=== PATIENT | female | born 1950 | race Caucasian/White ===

== ENCOUNTER → 2016-04-17 | Outpatient (CLI) | payer MEDICARE | END | disposition home or self-care (01) | LOC: LABWHC1 09:43 | PROVIDERS: ATTEND Internal Medicine Endocrinology, Diabetes & Metabolism | DX: E03.8 Other specified hypothyroidism (principal) | CPT/HCPCS: 36415; 84443 ==

== ENCOUNTER → 2016-06-06 | Outpatient (CLI) | payer MEDICARE | END | disposition home or self-care (01) | LOC: LABWHC1 10:37 | PROVIDERS: ATTEND Internal Medicine Endocrinology, Diabetes & Metabolism | DX: E03.8 Other specified hypothyroidism (principal) | CPT/HCPCS: 36415; 84443 ==

== ENCOUNTER 2016-10-03 10:01 | Observation (INO) | payer MEDICARE ==
--- NOTE | 2016-10-03 10:39 | ED ---
General Adult HPI - General Chief complaint: Arrhythmia/Palpitations Stated complaint: Chest Pains Time Seen by Provider: 10/03/16 10:17 Source: patient, family, RN notes reviewed Mode of arrival: wheelchair Limitations: no limitations - History of Present Illness Initial comments: 66-year-old female with history of GERD, and hypothyroidism presents with palpitations. Patient states that throughout the night she had palpitations, she was able to check her pulse on a home pulse oximeter and had a heart rate ranging from 1:30 to 160. She had an episode similar to this approximately one year ago. She did wear a three-day monitor at that time. She has been seen by cardiology, but is not currently on any treatment. No known history of atrial fibrillation. Patient states that tonight she did have some chest heaviness, denies any significant chest pain. She also has been experiencing some exertional dyspnea over the past several weeks. She states she had a stress test within the past year which according to her was normal, she's never had a heart catheterization. She has no history of fever or chills. No history of cough. She does have a family history of atrial fibrillation and congestive heart failure. No history of diabetes or hypertension. Patient is currently asymptomatic. No palpitations. No chest pain. No shortness of breath. Denies lower extremity swelling or pain. - Related Data Allergies Allergy/AdvReac Type Severity Reaction Status Date / Time ibuprofen Allergy Unknown Verified 10/03/16 10:03 Review of Systems ROS Statement: Those systems with pertinent positive or pertinent negative responses have been documented in the HPI. ROS Other: All systems not noted in ROS Statement are negative. Past Medical History Past Medical History: Thyroid Disorder Additional Past Medical History / Comment(s): lupus, neuropathy, ulcer History of Any Multi-Drug Resistant Organisms: None Reported Past Surgical History: Tonsillectomy Additional Past Surgical History / Comment(s): breast reduction Past Psychological History: No Psychological Hx Reported Smoking Status: Never smoker Past Alcohol Use History: Rare Past Drug Use History: None Reported General Exam Limitations: no limitations General appearance: alert, in no apparent distress Head exam: Present: atraumatic, normocephalic Eye exam: Present: normal appearance, PERRL ENT exam: Present: normal exam, mucous membranes moist Neck exam: Present: normal inspection. Absent: tenderness, meningismus Respiratory exam: Present: normal lung sounds bilaterally. Absent: respiratory distress, wheezes, rales Cardiovascular Exam: Present: regular rate, normal rhythm, normal heart sounds GI/Abdominal exam: Present: soft. Absent: distended, tenderness, guarding Extremities exam: Present: normal inspection, normal capillary refill. Absent: pedal edema, calf tenderness Back exam: Present: normal inspection, full ROM Neurological exam: Present: alert, oriented X3, CN II-XII intact. Absent: motor sensory deficit Psychiatric exam: Present: normal affect, normal mood Skin exam: Present: warm, dry, intact. Absent: cyanosis, diaphoretic Course Vital Signs 10/03/16 10/03/16 10/03/16 10:03 10:28 11:54 Temperature 96.7 F L Pulse Rate 75 73 78 Respiratory 18 20 16 Rate Blood Pressure 110/66 109/75 134/72 O2 Sat by Pulse 97 96 100 Oximetry EKG Findings - EKG Comments: EKG Findings:: EKG shows normal sinus rhythm, ventricular 74, [place] interval 138, QRS duration 88, QTC is 428, there is no ST segment elevation or depression, no T-wave abnormality. Medical Decision Making - Medical Decision Making 66-year-old female presents with palpitations. Patient did check her heart rate at home and had a rate of 1:30 to 160 at home. She experienced some chest tightness and heaviness with this. This was nonradiating. No nausea or diaphoresis associated with the chest pain. Patient has had a stress test and according to her this was negative. She is currently asymptomatic in the emergency department. EKG is nonischemic. Chest x-ray shows no acute process. Patient's laboratory studies including CBC, CMP, and cardiac enzymes are unremarkable. Patient did take an aspirin at home prior to arrival. Patient was placed in observation for serial cardiac enzymes and cardiology evaluation. She'll be placed on telemetry. Diagnosis: Palpitations, chest pain. - Lab Data Result diagrams: 10/03/16 10:20 10/03/16 10:20 Lab Results 10/03/16 10/03/16 10/03/16 Range/Units 10:20 10:20 10:20 WBC 7.1 (3.8-10.6) k/uL RBC 4.24 (3.80-5.40) m/uL Hgb 13.8 (11.4-16.0) gm/dL Hct 38.7 (34.0-46.0) % MCV 91.1 (80.0-100.0) fL MCH 32.6 (25.0-35.0) pg MCHC 35.8 (31.0-37.0) g/dL RDW 12.8 (11.5-15.5) % Plt Count 247 (150-450) k/uL Neutrophils % 62 % Lymphocytes % 27 % Monocytes % 6 % Eosinophils % 3 % Basophils % 1 % Neutrophils # 4.4 (1.3-7.7) k/uL Lymphocytes # 1.9 (1.0-4.8) k/uL Monocytes # 0.4 (0-1.0) k/uL Eosinophils # 0.2 (0-0.7) k/uL Basophils # 0.0 (0-0.2) k/uL PT (9.0-12.0) sec INR (<1.2) APTT (22.0-30.0) sec D-Dimer (<0.60) mg/L FEU Sodium 141 (137-145) mmol/L Potassium 4.2 (3.5-5.1) mmol/L Chloride 107 (98-107) mmol/L Carbon Dioxide 24 (22-30) mmol/L Anion Gap 10 mmol/L BUN 15 (7-17) mg/dL Creatinine 0.95 (0.52-1.04) mg/dL Est GFR (MDRD) Af Amer >60 (>60 ml/min/1.73 sqM) Est GFR (MDRD) Non-Af 59 (>60 ml/min/1.73 sqM) Glucose 117 H (74-99) mg/dL Calcium 9.3 (8.4-10.2) mg/dL Magnesium 1.7 (1.6-2.3) mg/dL Total Bilirubin 0.4 (0.2-1.3) mg/dL AST 34 (14-36) U/L ALT 43 (9-52) U/L Alkaline Phosphatase 89 (38-126) U/L Total Creatine Kinase 90 (30-135) U/L CK-MB (CK-2) 1.0 (0.0-2.4) ng/mL CK-MB (CK-2) Rel Index 1.1 Troponin I <0.012 (0.000-0.034) ng/mL NT-Pro-B Natriuret Pep pg/mL Total Protein 7.6 (6.3-8.2) g/dL Albumin 4.0 (3.5-5.0) g/dL TSH 1.590 (0.465-4.680) mIU/L 10/03/16 10/03/16 Range/Units 10:20 10:20 WBC (3.8-10.6) k/uL RBC (3.80-5.40) m/uL Hgb (11.4-16.0) gm/dL Hct (34.0-46.0) % MCV (80.0-100.0) fL MCH (25.0-35.0) pg MCHC (31.0-37.0) g/dL RDW (11.5-15.5) % Plt Count (150-450) k/uL Neutrophils % % Lymphocytes % % Monocytes % % Eosinophils % % Basophils % % Neutrophils # (1.3-7.7) k/uL Lymphocytes # (1.0-4.8) k/uL Monocytes # (0-1.0) k/uL Eosinophils # (0-0.7) k/uL Basophils # (0-0.2) k/uL PT 9.8 (9.0-12.0) sec INR 1.0 (<1.2) APTT 21.7 L (22.0-30.0) sec D-Dimer 0.36 (<0.60) mg/L FEU Sodium (137-145) mmol/L Potassium (3.5-5.1) mmol/L Chloride (98-107) mmol/L Carbon Dioxide (22-30) mmol/L Anion Gap mmol/L BUN (7-17) mg/dL Creatinine (0.52-1.04) mg/dL Est GFR (MDRD) Af Amer (>60 ml/min/1.73 sqM) Est GFR (MDRD) Non-Af (>60 ml/min/1.73 sqM) Glucose (74-99) mg/dL Calcium (8.4-10.2) mg/dL Magnesium (1.6-2.3) mg/dL Total Bilirubin (0.2-1.3) mg/dL AST (14-36) U/L ALT (9-52) U/L Alkaline Phosphatase (38-126) U/L Total Creatine Kinase (30-135) U/L CK-MB (CK-2) (0.0-2.4) ng/mL CK-MB (CK-2) Rel Index Troponin I (0.000-0.034) ng/mL NT-Pro-B Natriuret Pep 298 pg/mL Total Protein (6.3-8.2) g/dL Albumin (3.5-5.0) g/dL TSH (0.465-4.680) mIU/L Disposition Clinical Impression: Palpitations, Chest pain Disposition: ADMITTED IP TO THIS [facility] Condition: Stable Referrals: Willem Piper MD [Primary Care Provider] - 1-2 days Decision to Admit Reason: Admit from EC Decision Date: 10/03/16 Decision Time: 12:05
[2016-10-03 10:47] LABS: Basophils % (A) 1 %; CH 31.5; CHCM 34.7; Eosinophils # (A) 0.2 k/uL (0-0.7); Eosinophils % (A) 3 %; HCT 38.7 % (34.0-46.0); HDW 2.46; HGB 13.8 gm/dL (11.4-16.0); Luc % (Auto) 3; Lymphocytes # (A) 1.9 k/uL (1.0-4.8); Lymphocytes % (A) 27 %; MCH 32.6 pg (25.0-35.0); MCHC 35.8 g/dL (31.0-37.0); MCV 91.1 fL (80.0-100.0); Mean Platelet Volume 7.2; Monocytes # (A) 0.4 k/uL (0-1.0); Monocytes % (A) 6 %; Neutrophils # (A) 4.4 k/uL (1.3-7.7); Neutrophils % (A) 62 %; RBC 4.24 m/uL (3.80-5.40); RDW 12.8 % (11.5-15.5); WBC 7.1 k/uL (3.8-10.6); WBC (Perox) 7.56
[2016-10-03 11:00] LABS: Prothrombin Time 9.8 sec (9.0-12.0)
[2016-10-03 11:01] LABS: ALT 43 U/L (9-52); AST 34 U/L (14-36); Alkaline Phosphatase 89 U/L (38-126); Anion Gap 10 mmol/L; Blood Urea Nitrogen 15 mg/dL (7-17); Calcium 9.3 mg/dL (8.4-10.2); Carbon Dioxide 24 mmol/L (22-30); Chloride 107 mmol/L (98-107); Glucose 117 mg/dL (74-99); Magnesium 1.7 mg/dL (1.6-2.3); Non-African American GFR(MDRD) 59 (>60 ml/min/1.73 sqM); Potassium 4.2 mmol/L (3.5-5.1); Sodium 141 mmol/L (137-145); Total Bilirubin 0.4 mg/dL (0.2-1.3); Total Protein 7.6 g/dL (6.3-8.2)
--- NOTE | 2016-10-03 11:02 | XR ---
EXAMINATION TYPE: XR chest 2V DATE OF EXAM: 10/03/2016 COMPARISON: NONE TECHNIQUE: PA and lateral views submitted. HISTORY: Irregular heart rate FINDINGS: The lungs are clear and there is no pneumothorax, pleural effusion, or focal pneumonia. Nodular den sity along the right upper lobe. This may be related to anterior margin first rib. Recommend apical l ordotic view. Changes of COPD noted. Hypertrophic and degenerative change of the spine. IMPRESSION: 1. No acute process. Recommend apical lordotic view to exclude nodule right upper lobe. 2. COPD.
[2016-10-03 11:07] LABS: Partial Thromboplastin Time 21.7 sec (22.0-30.0)
[2016-10-03 11:08] LABS: Creatine Kinase 90 U/L (30-135)
[2016-10-03 11:20] LABS: Troponin I <0.012 ng/mL (0.000-0.034)
[2016-10-03] MEDS ORDERED: NALOXONE 0.4 MG/ML 1 ML VIAL IV PRN (12:07)
[2016-10-03] MEDS ORDERED: ACETAMINOPHEN TAB 325 MG TAB PO PRN (12:07)
[2016-10-03] MEDS ORDERED: ONDANSETRON 4 MG/2 ML VIAL IVP PRN (12:07)
[2016-10-03] MEDS: SODIUM CHLORIDE 0.9% 1,000 ML IV SCH (12:30)
[2016-10-03] MEDS: THYROID, PORK 30 MG TAB PO SCH ×2 (20:51)
[2016-10-03 23:18] LABS: Creatine Kinase 72 U/L (30-135)
[2016-10-03 23:33] LABS: Creatine Kinase MB 0.7 ng/mL (0.0-2.4); Troponin I <0.012 ng/mL (0.000-0.034)
[2016-10-04] MEDS ORDERED: THYROID, PORK 30 MG TAB PO SCH (06:30)
[2016-10-04] MEDS: SODIUM CHLORIDE 0.9% 1,000 ML IV SCH (06:50)
[2016-10-04] MEDS: THYROID, PORK 30 MG TAB PO SCH ×2 (06:51→06:52)
[2016-10-04] MEDS ORDERED: PANTOPRAZOLE 40 MG TABLET PO SCH (07:30)
[2016-10-04 07:41] LABS: Basophils % (A) 0 %; CH 32.2; CHCM 34.2; Eosinophils # (A) 0.2 k/uL (0-0.7); Eosinophils % (A) 2 %; HCT 39.9 % (34.0-46.0); HGB 13.2 gm/dL (11.4-16.0); Luc # (Auto) 0.21; Luc % (Auto) 3; Lymphocytes # (A) 2.1 k/uL (1.0-4.8); Lymphocytes % (A) 30 %; MCH 31.2 pg (25.0-35.0); MCV 94.7 fL (80.0-100.0); Mean Platelet Volume 7.7; Monocytes # (A) 0.4 k/uL (0-1.0); Monocytes % (A) 6 %; Neutrophils # (A) 4.1 k/uL (1.3-7.7); Neutrophils % (A) 59 %; RBC 4.21 m/uL (3.80-5.40); RDW 13.2 % (11.5-15.5); WBC (Perox) 7.29
[2016-10-04 07:57] LABS: ALT 42 U/L (9-52); AST 33 U/L (14-36); Alkaline Phosphatase 79 U/L (38-126); Anion Gap 11 mmol/L; Blood Urea Nitrogen 15 mg/dL (7-17); Calcium 9.1 mg/dL (8.4-10.2); Carbon Dioxide 23 mmol/L (22-30); Chloride 107 mmol/L (98-107); Glucose 88 mg/dL (74-99); Non-African American GFR(MDRD) >60 (>60 ml/min/1.73 sqM); Potassium 4.5 mmol/L (3.5-5.1); Sodium 141 mmol/L (137-145); Total Bilirubin 0.4 mg/dL (0.2-1.3); Total Protein 7.1 g/dL (6.3-8.2)
[2016-10-04 08:25] LABS: Creatine Kinase MB 0.6 ng/mL (0.0-2.4)
[2016-10-04] MEDS ORDERED: CHOLECALCIFEROL 1,000 UNIT TAB PO SCH (09:00)
[2016-10-04] MEDS ORDERED: NON-FORMULARY DRUG (Omega-3 Fatty Acids [Omega-3] 1,000 MG) PO SCH (09:00)
[2016-10-04] MEDS ORDERED: ASPIRIN 325 MG TAB PO SCH (09:00)
[2016-10-04] MEDS ORDERED: FOLIC ACID 1 MG TAB PO SCH (09:00)
--- NOTE | 2016-10-04 10:20 | CONS ---
Mrs. Yip is a 66-year-old female who came in complaining of palpitations and a rapid heartbeat of sudden onset. She was not really doing anything but she was standing when it happened. Her heart suddenly started to race very rapidly. She describes irregular rapid arrhythmia, not an irregular, irregular one. She feels it in her neck. She was short of breath. She was feeling the racing heart. She really did not have any chest discomfort but she did feel the need to sit down. This episode lasted for 2-3 hours. She has had numerous episodes over the last six months or so and has seen Dr. Mahan and has had an event monitor which did not document any clear cut arrhythmias and she was on observation management only. However, according to her she has had at least two episodes when she was shopping (standing) where she had a sudden onset of the arrhythmia and had to sit down because she did not feel right. She did bear down on those occasions and apparently this resulted in termination of the arrhythmia. However, the episodes in the past have been very short and this is the first time she has had such a long episode. PAST HISTORY: Hypothyroidism and GERD. She denies hypertension or diabetes. states she does get short of breath with exertion upon climbing the stairs. MEDICATIONS: 1. [place] thyroid. 2. Prilosec. 3. Folic acid. 4. Vitamin D3. REVIEW OF SYSTEMS: No fever, chills or rigors. No cough or expectoration. No nausea, vomiting, diarrhea, hematuria or dysuria. No stroke or seizure. No skin lesion. No musculoskeletal complaints. On examination, her blood pressure is 137/84 mmHg, pulse rate is in the 60's. She is afebrile, having some ( ). HEAD AND NECK: Normal. HEART: Heart sounds are normal. LUNGS: Clear to auscultation. EXTREMITIES: Warm. No edema. ECG shows sinus rhythm with normal NM interval, narrow QRS, no delta waves. ST segments are normal. Her labs are reviewed. Troponins are normal. TSH is normal at 1.6. Electrolytes are normal. Hemoglobin is normal at 13.8 and 13.2. IMPRESSION: 1. Recurrent palpitations, initially brief and short lived but still associated with dizziness and possibly Valsalva since terminated with bearing down. 2. Rapid palpitations of prolonged duration for 2-3 hours before abrupt termination. 3. Normal echocardiogram. 4. Normal cardiac enzymes. 5. Hypothyroidism, on replacement therapy and euthyroid at this time. SUGGEST: I had a detailed discussion with the patient and her . She has already had an event monitor in the past which did not capture any arrhythmias. She did not have any episodes at that time. I would not perform any further monitoring at this point. Her best option would be to perform a diagnostic EP study to see if she has any inducible arrhythmias such as an SVT or perhaps atrial fibrillation. At this point we do not have a diagnosis. 1. If she has an SVT, radiofrequency will be performed at the same setting. I described the entire procedure to her in detail, risks and benefits, success rates and complications in detail. 2. Other option is observation and attempting the Valsalva maneuver, however, on this occasion she was not able to stop it. 3. Medical treatment, however, she understands that we do not have a diagnosis of her condition and she will have to take the medications for life. In view of the fact that even shorter episodes have on at least two occasions caused dizziness to the point where she is being forced to sit down, I would suggest a diagnostic EP study to make a diagnosis of her arrhythmia followed by appropriate treatment. The patient is agreeable to this and I will schedule her for the procedure and have my office give her a call. MANNY
--- NOTE | 2016-10-04 11:02 | HP ---
DATE OF ADMISSION: 10/03/16 I am covering for Dr. Piper. CHIEF COMPLAINT: Chest pain and palpitations. HISTORY OF PRESENT ILLNESS: This 66-year-old woman with past medical history of multiple medical problems including GI bleed, hypertension, hypothyroidism, lupus, being followed by Dr. Piper in the outpatient setting, previously had palpitations which was evaluated by Cardiology in the outpatient setting. Last night, the patient woke up apparently from a dream which was not scary and heart rate was found to be 150. The heart rate came abruptly to normal rate according to her and the patient came to [facility] and was admitted to the hospital for further evaluation and treatment. The patient also had some feeling of anxiety and shortness of breath at the time. The patient also complaining of vague chest discomfort also. There is no history of fever, rigors or chills. No history of headache, loss of consciousness or seizures. Past medical history of hypertension, hypothyroidism, lupus, nephropathy, GERD. Mediations prior to admission include: 1. [place] thyroid 60 mg po daily and 50 mg po daily . 2. Prilosec 20 mg a.c. breakfast. 3. [place] 3 daily. 4. Multivitamins one po daily. 5. Folic acid 0.4 daily. 6. Vitamin D3 1000 daily. ALLERGIES: IBUPROFEN. FAMILY HISTORY: History of CHF and colon cancer. SOCIAL HISTORY: No history of smoking. No history of alcohol intake. REVIEW OF SYSTEMS: HEENT: No diminished vision. No diminished hearing. Cardiovascular system: As mentioned earlier. Respiratory: No cough, hemoptysis. GI: No nausea or vomiting. : No dysuria. Nervous system: No numbness, weakness. Allergy/Immunology: No asthma or hayfever. Musculoskeletal: As mentioned earlier. Hematology/oncology: No history of anemia. Endocrine: As mentioned earlier. Constitutional: As mentioned earlier. Dermatology: Negative. Rheumatology: Negative. Psychiatry: As mentioned earlier. PHYSICAL EXAMINATION: The patient is alert, oriented times three. Pulse 63. Blood pressure 103/64. Respiratory rate 16, temperature 98.2. Pulse ox 97% on room air. HEENT: Conjunctivae normal. NECK: No JVD. Cardiovascular: S1, S2 muffled. No S3, no S4. No murmur. No thrills Respiratory: Breath sounds diminished at the bases. No rhonchi and no crackles. Abdomen is soft , nontender. No mass palpable. Legs: No edema. No swelling. Nervous system: Higher functions as mentioned earlier. Moves all four limbs. No focal deficits. Lymphatics: No lymph nodes palpable in the neck, axilla or groin. Skin: No ulcer, rash or bleeding. LABS: CBC within normal limits. Glucose 170. TSH is normal. FINAL DIAGNOSES: 1. Chest pain and palpation for evaluation, rule out supraventricular tachycardia. 2. Hypertension. 3. Hypothyroidism. 4. Lupus. 5. History of peripheral neuropathy. RECOMMENDATIONS AND DISCUSSION: In this 66 -year-old woman who presented with multiple complex medical issues, we will monitor the patient closely. Continue the current medications. Continue symptomatic treatment. We will resume the home medications. I would also recommend cardiology consultation. Continue with telemetry. The patient also had 30 day telemetry according to her. I would recommend continued follow-up in the outpatient setting with possible event monitor. Otherwise, prognosis guarded. Further recommendations to follow. See orders for details. MTDD
[2016-10-04] MEDS ORDERED: MULTIVITAMINS, THERA 1 EACH TAB PO SCH (12:00)
[2016-10-04 12:25] VITALS: BP 104/60; PULSE 67; RESP 16; TEMP 98.1
--- NOTE | 2016-10-04 18:38 | P.DS ---
Providers Date of admission: 10/03/16 12:10 Attending physician: Willem Piper Consults: 10/03/16 12:08 Consult Physician Urgent Consulting Provider: Dangelo Leigh Consult Reason/Comments: Palpitations and chest pain Do you want consulting provider notified?: Yes Primary care physician: Willem Piper [facility] Course: This 66-year-old woman was admitted to the hospital with complaints or chest pain and palpitations. Patient was evaluated by cardiology. Patient also had a past medical history of similar symptoms. Patient is being followed by Dr. Piper in the outpatient setting. Dr. Clemente saw the patient during the hospitalization. Recommended outpatient follow-up including EP studies. I also recommended the patient to follow up closely with Dr. Piper and cardiology in the outpatient setting. On exam vitals stable S1 and S2 normal. Respirator system breath sounds equal. Abdomen soft nontender. Final diagnosis 1. Chest pain palpitation possibly supraventricular tachycardia. 2. Hypertension 3. Hypothyroidism 4. Lupus 5. History of peripheral neuropathy Patient Condition at Discharge: Stable Plan - Discharge Summary New Discharge Prescriptions: Continue Folic Acid 0.4 mg PO DAILY Cholecalciferol [Vitamin D3] 1,000 unit PO DAILY Thyroid,Pork [[place] Thyroid] 15 mg PO DAILY Thyroid,Pork [[place] Thyroid] 60 mg PO DAILY Omeprazole [PriLOSEC] 20 mg PO AC-BRKFST [place]-3 Fatty Acids [Theresa-3] 1,000 mg PO DAILY Multivitamins, Thera [Multivitamin (formulary)] 1 tab PO DAILY Discharge Medication List Cholecalciferol [Vitamin D3] 1,000 unit PO DAILY 10/03/16 [History] Folic Acid 0.4 mg PO DAILY 10/03/16 [History] Multivitamins, Thera [Multivitamin (formulary)] 1 tab PO DAILY 10/03/16 [History ] [place]-3 Fatty Acids [Theresa-3] 1,000 mg PO DAILY 10/03/16 [History] Omeprazole [PriLOSEC] 20 mg PO AC-BRKFST 10/03/16 [History] Thyroid,Pork [[place] Thyroid] 15 mg PO DAILY 10/03/16 [History] Thyroid,Pork [[place] Thyroid] 60 mg PO DAILY 10/03/16 [History] Follow up Appointment(s)/Referral(s): Dangelo Leigh MD [STAFF PHYSICIAN] - 1 Week (Dr. Leigh's office will call the patient to set up an appointment.) Willem Piper MD [Primary Care Provider] - 3 Days Ambulatory/Diagnostic Orders: Complete Blood Count w/diff [LAB.AMB] Time Frame: 3 Days, Location: Determined By Patient Patient Instructions/Handouts: Palpitations (GEN) Activity/Diet/Wound Care/Special Instructions: Diet: Cardiac Activity: Limited until follow up Discharge Disposition: HOME SELF-CARE
== END 2016-10-04 13:03 | disposition home or self-care (01) ==
LOC: EC 10:01 → 3OBS 12:10
PROVIDERS: ADMIT Family Medicine; ATTEND Family Medicine
DX: R07.89 Other chest pain (principal); R00.2 Palpitations; R06.00 Dyspnea, unspecified; R00.0 Tachycardia, unspecified; R06.02 Shortness of breath; R42 Dizziness and giddiness; I10 Essential (primary) hypertension; E03.9 Hypothyroidism, unspecified; M32.9 Systemic lupus erythematosus, unspecified; G62.9 Polyneuropathy, unspecified; K21.9 Gastro-esophageal reflux disease without esophagitis; Z82.49 Family history of ischemic heart disease and other diseases of the circulatory system; Z88.6 Allergy status to analgesic agent; Z79.899 Other long term (current) drug therapy
CPT/HCPCS: 99285; 96360; 96361; 36415; 93005; 85379; 83880; 80053 ×2; 84443; 82550 ×2; 82553 ×2; 83735; 84484; 85025 ×2; 85610; 85730; 71020; G0378 ×2

== ENCOUNTER 2016-10-06 12:45 | Day surgery (SDC) | payer MEDICARE ==
[2016-10-06] MEDS ORDERED: LIDOCAINE 2% INJ 20 MG/ML SQ ONE (13:15)
[2016-10-06] MEDS ORDERED: fentaNYL (PF) 50 MCG/ML 2 ML AMP ONE (14:35)
[2016-10-06] MEDS ORDERED: MIDAZOLAM 2 MG/2 ML VIAL ONE (14:35)
[2016-10-06] MEDS ORDERED: ISOPROTERENOL 250 MCG/1.25 ML SYR IV ONE (14:35)
[2016-10-06] MEDS ORDERED: IV FLUID CONTINUATION 1,000 ML IV ONE (14:35)
[2016-10-06] MEDS ORDERED: PROPOFOL 10 MG/ML 20 ML VIAL IV ONE (14:35)
[2016-10-06] MEDS ORDERED: HYDROcodone/APAP 5-325MG 1 EACH TAB PO PRN (17:15)
[2016-10-06] MEDS ORDERED: ACETAMINOPHEN TAB 325 MG TAB PO PRN (17:15)
--- NOTE | 2016-10-06 18:05 | CE ---
Earlene Yip is a 66-year-old female who has had recurrent episodes of palpitations, recent prolonged episode and she was quite symptomatic. She was brought in for diagnostic EP study and possibly radiofrequency ablation. The patient was brought to the EP lab in a fasting state. Written informed consent was obtained prior to the procedure. The right and left groins were prepped and draped as per protocol. 1% Lidocaine was used for local anesthesia. Four venous sheaths were placed in the right and left femoral veins and via these, four diagnostic catheters were positioned in the right heart ( high right atrial catheter, His bundle catheter, RV catheter and coronary sinus catheter). Sinus cycle length 818 ms, ND interval 135 ms, QRS 112 ms, QT interval 382 ms, AH interval 51 ms, HV interval 41 ms. Sinus node recovery times at 600, 500 and 400 ms were 1168, 1046 and 995 ms, corresponding corrected sinus node recovery times within normal limits. AV node Wenckebach block 340 ms, no delta waves. Initially there was no evidence of slow pathway conduction during straight pacing but later through the procedure, during Isuprel recovery, there was evidence of slow pathway conduction antegrade with straight pacing. VA Wenckebach of less than 240 ms. External extrastimulation was performed from the high right atrium and from the coronary sinus with predominant extra stimuli and there was evidence for jump in the AH interval with an echo beat as well as short, nonsustained runs of SVT. With catheter manipulation, sustained SVT was induced but it terminated before pacing ( ) could be performed. On Isuprel, SVT was more difficult to induce. ( ) pacing was performed and shahid response was noted. Ventricular extrastimulation showed that the retrograde conduction ( ). 3D mapping of the slow pathway was performed. The His cloud was mapped and tagged. Coronary sinus os was tagged. Tricuspid valve was identified and RF ablation, anterior inferior to the coronary sinus was performed. Junction rhythm was obtained with almost virtually all RF lesions especially at a temperature reached above 53 degrees. At the end of the procedure, after RF ablation, a full EP study was once again performed with extra stimulation of triple extra stimuli and there was no evidence for even an echo beat. No SVT was induced. No non-sustained ST was induced. The patients ND interval was 141 ms at the end of the procedure. She tolerated the procedure well without any acute complications. RESULT: Diagnostic EP study revealing AV shahid reentry ( ) tachycardia. Successful slow pathway mapping ablation was performed and the tachycardia was rendered non-reducible. PLAN: Overnight observation and discharge home tomorrow. Follow with Dr. Mahan and Dr. Piper. MANNY
--- NOTE | 2016-10-06 18:10 | MISC ---
Dear Willem: I had the pleasure of seeing Earlene Yip in electrophysiology follow-up. I saw Earlene when she was admitted to the hospital with recurrent palpitations. She has had palpitations in the past but they have been shorter episodes often associated with some dizziness. She was brought in for an EP study and AV shahid reentry was induced quite easily. Successful mapping and ablation of AV shahid reentry was performed and the tachycardia was rendered noninducible. She will continue [place] thyroid and ( ) other medications. She was not given any other cardiac medications at this point. She will follow-up with you and Dr. Mahan as before. Thank you for entrusting me in the care of your patient. Warm regards, Sincerely, MANNY
[2016-10-06 18:56] VITALS: BMI 29.6
[2016-10-07] MEDS ORDERED: THYROID, PORK 30 MG TAB PO SCH ×2 (06:30)
[2016-10-07] MEDS: SODIUM CHLORIDE 0.9% 1,000 ML IV SCH ×2 (07:08→10:39)
[2016-10-07] MEDS: LACTATED RINGERS 1,000 ML IV SCH ×2 (07:08→10:38)
[2016-10-07] MEDS ORDERED: PANTOPRAZOLE 40 MG TABLET PO SCH (07:30)
[2016-10-07 08:10] VITALS: BP 120/70; PULSE 68; RESP 17; TEMP 97.7
--- NOTE | 2016-10-07 09:56 | P.DS ---
Providers Attending physician: Dangelo Leigh Primary care physician: Willem Piper [facility] Course: Patient was admitted for evaluation and management of recurrent palpitations associated with lightheadedness. Increasing in frequency. Increasing in duration. She underwent a diagnostic EP study which revealed AV shahid reentry and she underwent successful SVT ablation/slow pathway ablation. At the end of the procedure the tachycardia was rendered noninducible. We could not even induce single echo beats at the end of the procedure. MT interval was 140 ms. She is doing well this morning. No chest discomfort no shortness of breath. Minimal groin pain. No swelling no hematoma. Heart sounds are normal normal S1 normal S2 no murmurs no gallops. Breath sounds are normal no rhonchi no crackles. Abdomen is soft nontender. Extremities are warm and pulses are normal Impression AV shahid reentrant tachycardia, recurrent status post successful ablation yesterday Plan Discharge home later today after ambulation in the hallways for a few hours and follow-up of Dr. Mahan in about 2 weeks Plan - Discharge Summary New Discharge Prescriptions: No Action Cholecalciferol [Vitamin D3] 5,000 unit PO DAILY Omeprazole [PriLOSEC] 20 mg PO AC-BRKFST [place]-3 Fatty Acids [[place]-3] 1,000 mg PO DAILY Multivitamins, Thera [Multivitamin (formulary)] 1 tab PO DAILY Thyroid,Pork [[place] Thyroid] 60 mg PO DAILY Folic Acid 0.8 mg PO DAILY Thyroid,Pork [[place] Thyroid] 15 mg PO DAILY Discharge Medication List Cholecalciferol [Vitamin D3] 5,000 unit PO DAILY 10/03/16 [History] Multivitamins, Thera [Multivitamin (formulary)] 1 tab PO DAILY 10/03/16 [History ] [place]-3 Fatty Acids [[place]-3] 1,000 mg PO DAILY 10/03/16 [History] Omeprazole [PriLOSEC] 20 mg PO AC-BRKFST 10/03/16 [History] Folic Acid 0.8 mg PO DAILY 10/05/16 [History] Thyroid,Pork [[place] Thyroid] 15 mg PO DAILY 10/05/16 [History] Thyroid,Pork [[place] Thyroid] 60 mg PO DAILY 10/05/16 [History]
== END 2016-10-07 11:00 | disposition home or self-care (01) ==
LOC: CATHEP 12:45 → 3OBS 17:06 → CATHEP 10-07 11:00
PROVIDERS: ATTEND Internal Medicine Clinical Cardiac Electrophysiology
DX: I47.1 Supraventricular tachycardia (principal); E03.9 Hypothyroidism, unspecified; K21.9 Gastro-esophageal reflux disease without esophagitis; Z79.899 Other long term (current) drug therapy; Z88.6 Allergy status to analgesic agent; Z88.8 Allergy status to other drugs, medicaments and biological substances
CPT/HCPCS: 93623; 93613; 93653; C1894; C1769; C1730 ×3; C1732 ×2; C1893; J2001; J2250; J3010; J2704; 93609

== ENCOUNTER → 2016-10-19 | Outpatient (CLI) | payer MEDICARE | END | disposition home or self-care (01) | LOC: LABWHC1 09:12 | PROVIDERS: ATTEND Internal Medicine Endocrinology, Diabetes & Metabolism | DX: E03.8 Other specified hypothyroidism (principal) | CPT/HCPCS: 36415; 84443 ==

== ENCOUNTER → 2016-12-15 | Outpatient (CLI) | payer MEDICARE | END | disposition home or self-care (01) | LOC: LABWHC1 14:52 | PROVIDERS: ATTEND Internal Medicine Endocrinology, Diabetes & Metabolism | DX: E03.8 Other specified hypothyroidism (principal) | CPT/HCPCS: 36415; 84443 ==

== ENCOUNTER → 2017-03-17 | Outpatient (CLI) | payer MEDICARE ==
--- NOTE | 2017-03-18 09:23 | BD ---
EXAMINATION TYPE: MG DEXA axial skeleton. DATE OF EXAM: 03/17/2017 COMPARISON: NONE CLINICAL HISTORY: post menopausal Height: 5'5 Weight: 187 FRAX RISK QUESTIONS: Alcohol (3 or more units per day): no Family History (Parent hip fracture): no Glucocorticoids (More than 3mos): no (Ex: prednisone, prednisolone, methylprednisolone, dexamethasone, and hydrocortisone). History of Fracture in Adulthood: no Secondary Osteoporosis: 1. Type 1 Diabetes: no 2. Hyperthyroidism: no 3. Menopause before 45: no 4. Malnutrition: no 5. Chronic liver disease: no Rheumatoid Arthritis: no Current Tobacco Use: no RISK FACTORS HISTORY OF: Postmenopausal woman: Lost more than 2 inches in height since high school: Frequent falls: MEDICATIONS: Thyroid Medications: Which medication: armarthyroid How Lon years Additional Medications: Additional History: EXAM MEASUREMENTS: Bone mineral densitometry was performed using the [employer]. Bone mineral density as measured about the Lumbar spine is: ----- L1-L4(G/cm2): 1.170 T Score Values are as follows: ----- L2: 0.0 ----- L3: 0.5 ----- L4: -0.2 ----- L1-L4: -0.1 Bone mineral density about the R hip (g/cm2): 0.867 Bone mineral density about the L hip (g/cm2): 0.865 T Score values are as follows: -----R Neck: -1.2 -----L Neck: -1.2 -----R Total: -0.5 -----L Total: -0.5 IMPRESSION: Osteopenia (T Score between -2.5 and -1 as noted by T score values at femoral neck level in both hips . There is slightly increased risk of fracture and the patient may be considered for treatment. Re-Screen 2-5 years. NOTE: T-SCORE=SD OF THE YOUNG ADULT MEAN.
--- NOTE | 2017-03-19 07:19 | MM ---
Reason for exam: screening (asymptomatic). Last mammogram was performed 1 year and 6 months ago. History: Patient is postmenopausal. Reductions of both breasts, 1999. Taking estrogen for 6 months beginning at age 55. Physical Findings: A clinical breast exam by your physician is recommended on an annual basis and results should be correlated with mammographic findings. MG Screening Mammo w CAD Bilateral CC and MLO view(s) were taken. Prior study comparison: September 10, 2015, bilateral MG 3d screening mammo w/cad. May 24, 2006, CAD bilateral diagnostic mammogram. There are scattered fibroglandular densities. No significant changes when compared with prior studies. ASSESSMENT: Benign, BI-RAD 2 RECOMMENDATION: Routine screening mammogram of both breasts in 1 year.
== END | disposition home or self-care (01) ==
LOC: RADMAMWWP 15:13
PROVIDERS: ATTEND Family Medicine
DX: Z12.31 Encounter for screening mammogram for malignant neoplasm of breast (principal); M85.851 Other specified disorders of bone density and structure, right thigh; M85.852 Other specified disorders of bone density and structure, left thigh; Z78.0 Asymptomatic menopausal state
CPT/HCPCS: 77067; 77080

== ENCOUNTER → 2017-05-10 | Outpatient (CLI) | payer MEDICARE | END | disposition home or self-care (01) | LOC: LABWHC1 10:16 | PROVIDERS: ATTEND Internal Medicine Endocrinology, Diabetes & Metabolism | DX: E03.8 Other specified hypothyroidism (principal) | CPT/HCPCS: 36415; 84443 ==

== ENCOUNTER → 2017-12-13 | Outpatient (CLI) | payer MEDICARE ==
--- NOTE | 2017-12-13 11:06 | US ---
EXAMINATION TYPE: US thyroid st tissue head/neck DATE OF EXAM: 12/13/2017 COMPARISON: NONE CLINICAL HISTORY: Hypothyroidism E03.9. GLAND SIZE: Right Lobe: 3.4 x 1.2 x 1.2 cm Overall Parenchyma: heterogenous Left Lobe: 3.3 x 1.0 x 1.1 cm Overall Parenchyma: heterogeneous Isthmus Thickness: 0.4 cm NODULES RIGHT: # of nodules measured on right: 0 LEFT: # of nodules measured on left: 0 Posterior lateral to left thyroid is a cystic structure measuring 0.5 x 0.4 x 0.4cm, this cyst is wid er than tall and has no vascularity. ISTHMUS: # of nodules measured in the isthmus: 0 Bilateral neck scanned, no evidence of lymphadenopathy. IMPRESSION: 1. Nonspecific thyroid glandular heterogeneity. 2. Extrathyroid cystic structure as noted.
--- NOTE | 2017-12-13 11:15 | FL ---
ESOPHOGRAM. HISTORY: Dysphagia Esophagram was performed per the air contrast technique. The patient swallowed barium and effervesce nt crystals without difficulty or delay. Esophageal peristalsis and motility appear to be within normal limits. There is no evidence for filling defect, mass or diverticulum. Small reducible sliding type hiatal hernia. Subsequently single contrast cervical esophagram was performed which fails demonstrate evidence for a spiration penetration or mass. There is mild hypertrophy of the cricopharyngeus musculature. IMPRESSION: 1.Small reducible sliding type hiatal hernia. 2.There is mild hypertrophy of the cricopharyngeus musculature.
== END | disposition home or self-care (01) ==
LOC: RADUSWWP 10:02
PROVIDERS: ATTEND Otolaryngology
DX: K44.9 Diaphragmatic hernia without obstruction or gangrene (principal); J39.2 Other diseases of pharynx; E03.9 Hypothyroidism, unspecified
CPT/HCPCS: 74220; 76536

== ENCOUNTER → 2017-12-16 | Outpatient (CLI) | payer MEDICARE ==
[2017-12-16 17:43] LABS: Thyroid Peroxidase Antibodies 52.9 U/mL (0.0-60.0)
== END | disposition home or self-care (01) ==
LOC: LABWHC1 08:57
PROVIDERS: ATTEND Otolaryngology
DX: E03.9 Hypothyroidism, unspecified (principal)
CPT/HCPCS: 36415; 86376; 86800

== ENCOUNTER → 2018-01-14 | Outpatient (CLI) | payer MEDICARE | LOC: LABWHC1 11:11 | PROVIDERS: ATTEND Internal Medicine Endocrinology, Diabetes & Metabolism | DX: E03.8 Other specified hypothyroidism (principal) | CPT/HCPCS: 36415; 84443 ==

== ENCOUNTER 2018-02-02 07:24 | Day surgery (SDC) | payer MEDICARE ==
[2018-01-27 09:27] VITALS: BMI 29.8
[~2018-02-02 07:24] MED LIST: LACTATED RINGERS 1,000 ML IV SCH
[2018-02-02 07:40] VITALS: RESP 17; TEMP 97.5
[2018-02-02] MEDS ORDERED: fentaNYL (PF) 50 MCG/ML 2 ML AMP ONE (08:01)
[2018-02-02] MEDS ORDERED: MIDAZOLAM 2 MG/2 ML VIAL ONE (08:01)
[2018-02-02] MEDS ORDERED: PROPOFOL 10 MG/ML 20 ML VIAL IV ONE (08:01)
--- NOTE | 2018-02-02 08:14 | P.PCN ---
Date of Procedure: 02/02/18 Procedure(s) Performed: BRIEF HISTORY: Patient is a 67-year-old, pleasant, white female, scheduled for an upper endoscopy as a part of evaluation of intermittent dysphagia to solids and globus sensation in her throat area for the last 6 months duration. Patient has history of peptic ulcer disease and pyloric stenosis for which she is on Prilosec 20 mg daily and doing well. PROCEDURE PERFORMED: Esophagogastroduodenoscopy with biopsy. PREOPERATIVE DIAGNOSIS: Intermittent dysphagia to solids and globus sensation 6 months duration. IV sedation per anesthesia. PROCEDURE: After informed consent was obtained, the patient was brought into the endoscopy unit. IV sedation was administered by Anesthesia under continuous monitoring. Initially the Olympus GIF-140 video endoscope was inserted into the mouth. Esophagus intubated without any difficulty. It was gradually advanced into the stomach and duodenum and carefully examined. There was early pyloric stenosis noted and the scope was advanced through the pylorus with some mild to moderate pressure. The bulb and the second part of the duodenum appeared normal. The scope at this time was withdrawn to the stomach, adequately insufflated with air, and upon careful examination, mucosa of the antrum, body, cardia and the fundus appeared normal. The scope was then withdrawn into the esophagus. The GE junction was located at 39 cm from the incisors. There was early distal esophageal stricture that was dilated with the passage of the scope. Also there was circumferential erythema with superficial erosions of the distal esophagus consistent with LA grade B reflux esophagitis. The rest of the esophagus appeared normal. Biopsies were done from the distal esophagus and the patient tolerated the procedure well. IMPRESSION: 1. Early distal esophageal stricture status post dilation with the passage of the scope. 2. Circumferential erythema and erosions in the distal esophagus consistent with LA grade B reflux esophagitis. 3. Early pyloric stenosis RECOMMENDATIONS: The findings of this examination were discussed with the patient as well as a family. She was advised to follow with the biopsy results. She will increase the Prilosec to 20 mg twice daily and follow anti- reflex measures. She'll be seen in office in 6 weeks..
[2018-02-02 08:29] VITALS: BP 116/80; PULSE 67
== END 2018-02-02 09:00 | disposition home or self-care (01) ==
LOC: ORWHC2ENDO 07:24
PROVIDERS: ATTEND Internal Medicine Gastroenterology
DX: K22.2 Esophageal obstruction (principal); K22.10 Ulcer of esophagus without bleeding; K31.1 Adult hypertrophic pyloric stenosis; G43.909 Migraine, unspecified, not intractable, without status migrainosus; G47.33 Obstructive sleep apnea (adult) (pediatric); E07.9 Disorder of thyroid, unspecified; K21.9 Gastro-esophageal reflux disease without esophagitis; M32.9 Systemic lupus erythematosus, unspecified; Z87.19 Personal history of other diseases of the digestive system; Z79.890 Hormone replacement therapy; Z79.899 Other long term (current) drug therapy; Z88.6 Allergy status to analgesic agent; Z88.8 Allergy status to other drugs, medicaments and biological substances
CPT/HCPCS: 88305; 43239; J2250; J3010; J2704

== ENCOUNTER → 2018-07-26 | Outpatient (CLI) | payer MEDICARE | END | disposition home or self-care (01) | LOC: LABWHC1 08:20 | PROVIDERS: ATTEND Internal Medicine Endocrinology, Diabetes & Metabolism | DX: E03.8 Other specified hypothyroidism (principal) | CPT/HCPCS: 36415; 84443 ==

== ENCOUNTER → 2018-10-04 | Outpatient (CLI) | payer MEDICARE ==
--- NOTE | 2018-10-04 09:39 | US ---
EXAMINATION TYPE: US thyroid st tissue head/neck DATE OF EXAM: 10/04/2018 COMPARISON: 12/13/2017 CLINICAL HISTORY: E04.1 Thyroid Nodule. follow up exam GLAND SIZE: Right Lobe: 4.2 x 1.3 x 1.8cm Overall Parenchyma: heterogenous Left Lobe: 4.7 x 1.0 x 1.3 cm Overall Parenchyma: heterogeneous Isthmus Thickness: 0.3 cm NODULES RIGHT: # of nodules measured on right: 0 LEFT: # of nodules measured on left: 0 ISTHMUS: # of nodules measured in the isthmus: 0 Bilateral neck scanned, no evidence of lymphadenopathy. inferolateral cystic lesion still seen on today's exam on the left = 0.6 x 0.5 x 0.5cm. This was no paramjit on the exam of 12/13/2017 measuring 0.5 x 0.4 x 0.4 cm. There is diffuse glandular heterogeneity and hypervascularity. IMPRESSION: 1. Very minimal interval growth (1 mm in each dimension) of the extrathyroid cystic structure noted o n the prior exam this could represent an exophytic nodule or small adjacent lymph nodes. 2. Diffuse glandular heterogeneity and hypervascularity suggest thyroiditis.
== END | disposition home or self-care (01) ==
LOC: RADUSWWP 08:53
PROVIDERS: ATTEND Otolaryngology
DX: E07.9 Disorder of thyroid, unspecified (principal)
CPT/HCPCS: 76536

== ENCOUNTER → 2019-02-20 | Outpatient (CLI) | payer MEDICARE | END | disposition home or self-care (01) | LOC: LABWHC1 15:53 | PROVIDERS: ATTEND Internal Medicine Endocrinology, Diabetes & Metabolism | DX: E03.8 Other specified hypothyroidism (principal) | CPT/HCPCS: 36415; 84443 ==

== ENCOUNTER → 2019-08-28 | Outpatient (CLI) | payer MEDICARE | END | disposition home or self-care (01) | LOC: LABWHC1 09:24 | PROVIDERS: ATTEND Internal Medicine Endocrinology, Diabetes & Metabolism | DX: E03.8 Other specified hypothyroidism (principal) | CPT/HCPCS: 36415; 84443 ==

== ENCOUNTER → 2019-09-04 | Outpatient (CLI) | payer MEDICARE ==
--- NOTE | 2019-09-04 09:21 | CT ---
EXAMINATION TYPE: CT brain wo con DATE OF EXAM: 09/04/2019 COMPARISON: None HISTORY: Dizziness CT DLP: 1054.[address] of the brain was performed. The ventricles, basal cisterns and sulci overlying the cerebral convexities demonstrate mild enlargem ent. There is no evidence for intracranial hemorrhage or sulcal effacement. There is decreased attenuation about the periventricular white matter and deep white matter of both c erebral hemispheres, compatible with chronic small vessel ischemia. Differential diagnosis does inclu de demyelination. No mass effects are seen.No midline shift. Osseous calvarium is intact. If symptoms persist consider MRI. IMPRESSION: 1. Age related atrophic and chronic small vessel ischemic change without acute intracranial process s een at this time.
--- NOTE | 2019-09-04 09:33 | US ---
EXAMINATION TYPE: US carotid duplex BILAT DATE OF EXAM: 09/04/2019 COMPARISON: NONE CLINICAL HISTORY: R42 dizziness. Dizziness. No HTN. EXAM MEASUREMENTS: RIGHT: Peak Systolic Velocity (PSV) cm/sec ----- Right CCA: 92.6 ----- Right ICA: 73.0 ----- Right ECA: 78.6 ICA/CCA ratio: 0.8 RIGHT: End Diastole cm/sec ----- Right CCA: 23.8 ----- Right ICA: 16.4 ----- Right ECA: 12.1 LEFT: Peak Systolic Velocity (PSV) cm/sec ----- Left CCA: 94.1 ----- Left ICA: 84.4 ----- Left ECA: 98.7 ICA/CCA ratio: 0.9 LEFT: End Diastole cm/sec ----- Left CCA: 25.8 ----- Left ICA: 18.4 ----- Left ECA: 11.5 VERTEBRALS (direction of flow): Right Vertebral: Antegrade Left Vertebral: Antegrade Rhythm: Normal Wall thickening visualized. No plaque, elevated velocities or significant stenosis. IMPRESSION: 1. Intimal thickening without significant flow-limiting stenosis. Criteria for Assigning % of Stenosis / Diameter reduction (Estimation based on the indirect measurements of the internal carotid artery velocities (ICA PSV). 1. Normal (no stenosis)=ICA PSV < 125 cm/s: ratio < 2.0: ICA EDV<40 cm/s. 2. Less than 50% stenosis=ICA PSV < 125 cm/s: ratio < 2.0: ICA EDV<40 cm/s. 3. 50 to 69% stenosis=ICA PSV of 125 to 230 cm/s: ration 2.0 ? 4.0: ICA EDV 40-100 cm/s. 4. Greater than 70% stenosis to near occlusion= ICA PSV > 230 cm/s: ratio > 4.0: ICA EDV > 100 cm/s. 5. Near occlusion= ICA PSV velocities may be low or undetectable: variable ratio and ICA EDV. 6. Total occlusion=unable to detect flow.
== END ==
LOC: RADCTMAIN 08:09
PROVIDERS: ATTEND Family Medicine
DX: I67.82 Cerebral ischemia (principal); G31.1 Senile degeneration of brain, not elsewhere classified; R93.89 Abnormal findings on diagnostic imaging of other specified body structures
CPT/HCPCS: 70450; 93880

== ENCOUNTER 2020-02-28 17:27 | Emergency (ER) | payer MEDICARE ==
[2020-02-28] MEDS ORDERED: SODIUM CHLORIDE 0.9% 500 ML 500 ML IV STA (17:48)
[2020-02-28 18:07] LABS: Basophils # (A) 0.1 k/uL (0-0.2); Basophils % (A) 1 %; Eosinophils # (A) 0.2 k/uL (0-0.7); Eosinophils % (A) 3 %; HCT 37.7 % (34.0-46.0); HGB 13.2 gm/dL (11.4-16.0); Lymphocytes # (A) 2.4 k/uL (1.0-4.8); Lymphocytes % (A) 32 %; MCH 32.3 pg (25.0-35.0); MCV 92.2 fL (80.0-100.0); Mean Platelet Volume 7.4; Monocytes # (A) 0.4 k/uL (0-1.0); Monocytes % (A) 6 %; Neutrophils # (A) 4.2 k/uL (1.3-7.7); Neutrophils % (A) 56 %; Platelet Count 226 k/uL (150-450); RBC 4.09 m/uL (3.80-5.40); RDW 12.5 % (11.5-15.5); WBC 7.4 k/uL (3.8-10.6)
--- NOTE | 2020-02-28 18:15 | ED ---
General Adult HPI - General Chief complaint: Arrhythmia/Palpitations Stated complaint: chest pain Time Seen by Provider: 02/28/20 17:30 Source: patient, RN notes reviewed, old records reviewed Mode of arrival: ambulatory Limitations: no limitations - History of Present Illness Initial comments: This is a 69-year-old patient female presents emergency Department with a past medical history for SVT. Patient states she had an ablation. Patient states si nce last evening she's been having episodes where her heart is racing and then it's going slow and she's checked on pulse oximeter and she says is gotten as high as 120s. She denies any chest pain patient denies shortness of breath. Patient states currently she is having no symptoms. Patient denies headache patient denies numbness weakness. Patient denies any recent fever chills or cough. Patient denies any calf pain or leg swelling - Related Data Home Medications Medication Instructions Recorded Confirmed Cholecalciferol [Vitamin D3 (25 125 mcg PO DAILY 10/03/16 02/28/20 Mcg = 1000 Iu)] Multivitamins, Thera [Multivitamin 1 tab PO DAILY 10/03/16 02/28/20 (formulary)] Folic Acid 0.8 mcg PO DAILY 10/05/16 02/28/20 Thyroid,Pork [[place] Thyroid] 15 mg PO DAILY 10/05/16 02/28/20 Thyroid,Pork [[place] Thyroid] 60 mg PO DAILY 10/05/16 02/28/20 Ascorbic Acid [Vitamin C] 1,000 mg PO DAILY 02/28/20 02/28/20 Zinc 50 mg PO DAILY 02/28/20 02/28/20 Allergies Allergy/AdvReac Type Severity Reaction Status Date / Time ibuprofen Allergy Anaphylaxis Verified 02/28/20 18:45 oseltamivir [From Tamiflu] Allergy swelling,severe Verified 02/28/20 18:45 headache,SOB Review of Systems ROS Statement: Those systems with pertinent positive or pertinent negative responses have been documented in the HPI. ROS Other: All systems not noted in ROS Statement are negative. Past Medical History Past Medical History: GERD/Reflux, GI Bleed, Sleep Apnea/CPAP/BIPAP, Thyroid Disorder Additional Past Medical History / Comment(s): Lupus. HX HIATAL HERNIA Ulcer. HX Migraines. IN 1997 TOLD SLEEP APNEA, UNABLT TO USE MACHINE. HX ARRYTHMIA, HAD ABLATION. HAS FEELING OF SOMETHING STUCK IN THROAT. History of Any Multi-Drug Resistant Organisms: None Reported Past Surgical History: Breast Surgery, Cardiac Ablation, Tonsillectomy, Tubal Ligation Additional Past Surgical History / Comment(s): Breast reduction. CARDIAC ABLATION 09/2016. EGD, COLONOSCOPY. Past Anesthesia/Blood Transfusion Reactions: No Reported Reaction Past Psychological History: No Psychological Hx Reported Past Alcohol Use History: None Reported Past Drug Use History: None Reported - Past Family History Mother Family Medical History: Congestive Heart Failure (CHF) Father Family Medical History: Cancer Additional Family Medical History / Comment(s): Colon CA General Exam - General Exam Comments Initial Comments: GENERAL: Patient is well-developed and well-nourished. Patient is nontoxic and well- hydrated and is in no acute distress. ENT: Neck is soft and supple. No significant lymphadenopathy is noted. Oropharynx is clear. Moist mucous membranes. Neck has full range of motion without eliciting any pain. EYES: The sclera were anicteric and conjunctiva were pink and moist. Extraocular movements were intact and pupils were equal round and reactive to light. Eyelids were unremarkable. PULMONARY: Unlabored respirations. Good breath sounds bilaterally. No audible rales rhonchi or wheezing was noted. CARDIOVASCULAR: There is a regular rate and rhythm without any murmurs gallops or rubs. ABDOMEN: Soft and nontender with normal bowel sounds. No palpable organomegaly was noted. There is no palpable pulsatile mass. SKIN: Skin is clear with no lesions or rashes and otherwise unremarkable. NEUROLOGIC: Patient is alert and oriented x3. Cranial nerves II through XII are grossly intact. Motor and sensory are also intact. Normal speech, volume and content. Symmetrical smile. MUSCULOSKELETAL: Normal extremities with adequate strength and full range of motion. No lower extremity swelling or edema. No calf tenderness. LYMPHATICS: No significant lymphadenopathy is noted PSYCHIATRIC: Normal psychiatric evaluation. Limitations: no limitations Course Vital Signs 02/28/20 02/28/20 02/28/20 17:28 18:39 19:34 Temperature 98.0 F Pulse Rate 69 72 72 Respiratory 18 16 18 Rate Blood Pressure 152/90 136/80 154/92 O2 Sat by Pulse 98 98 97 Oximetry Medical Decision Making - Medical Decision Making EKG shows normal sinus rhythm at 69 bpm KS interval 140-78 QT interval is 42 QTC is 4:30. Patient's EKG shows no ST segment elevation or depression. Chest x-ray shows no acute abnormality. Patient on 2 occasions thought she was having palpitations and we looked at the rhythm strip also cardiac she was having PACs. Patient was comfortable going home and follow-up with her doctor for a vent monitor. - Lab Data Result diagrams: 02/28/20 17:50 02/28/20 17:50 Lab Results 02/28/20 02/28/20 02/28/20 Range/Units 17:50 17:50 17:50 WBC 7.4 (3.8-10.6) k/uL RBC 4.09 (3.80-5.40) m/uL Hgb 13.2 (11.4-16.0) gm/dL Hct 37.7 (34.0-46.0) % MCV 92.2 (80.0-100.0) fL MCH 32.3 (25.0-35.0) pg MCHC 35.0 (31.0-37.0) g/dL RDW 12.5 (11.5-15.5) % Plt Count 226 (150-450) k/uL MPV 7.4 Neutrophils % 56 % Lymphocytes % 32 % Monocytes % 6 % Eosinophils % 3 % Basophils % 1 % Neutrophils # 4.2 (1.3-7.7) k/uL Lymphocytes # 2.4 (1.0-4.8) k/uL Monocytes # 0.4 (0-1.0) k/uL Eosinophils # 0.2 (0-0.7) k/uL Basophils # 0.1 (0-0.2) k/uL PT 10.1 (9.0-12.0) sec INR 0.9 (<1.2) APTT 21.1 L (22.0-30.0) sec Sodium 138 (137-145) mmol/L Potassium 3.8 (3.5-5.1) mmol/L Chloride 105 (98-107) mmol/L Carbon Dioxide 24 (22-30) mmol/L Anion Gap 9 mmol/L BUN 17 (7-17) mg/dL Creatinine 0.85 (0.52-1.04) mg/dL Est GFR (CKD-EPI)AfAm 81 (>60 ml/min/1.73 sqM) Est GFR (CKD-EPI)NonAf 70 (>60 ml/min/1.73 sqM) Glucose 163 H (74-99) mg/dL Calcium 9.4 (8.4-10.2) mg/dL Magnesium 1.8 (1.6-2.3) mg/dL Total Bilirubin 0.4 (0.2-1.3) mg/dL AST 34 (14-36) U/L ALT 30 (4-34) U/L Alkaline Phosphatase 82 (38-126) U/L Troponin I (0.000-0.034) ng/mL Total Protein 7.8 (6.3-8.2) g/dL Albumin 4.2 (3.5-5.0) g/dL TSH 1.890 (0.465-4.680) mIU/L Urine Opiates Screen (NotDetected) Ur Oxycodone Screen (NotDetected) Urine Methadone Screen (NotDetected) Ur Propoxyphene Screen (NotDetected) Ur Barbiturates Screen (NotDetected) U Tricyclic Antidepress (NotDetected) Ur Phencyclidine Scrn (NotDetected) Ur Amphetamines Screen (NotDetected) U Methamphetamines Scrn (NotDetected) U Benzodiazepines Scrn (NotDetected) Urine Cocaine Screen (NotDetected) U Marijuana (THC) Screen (NotDetected) 02/28/20 02/28/20 Range/Units 17:50 18:39 WBC (3.8-10.6) k/uL RBC (3.80-5.40) m/uL Hgb (11.4-16.0) gm/dL Hct (34.0-46.0) % MCV (80.0-100.0) fL MCH (25.0-35.0) pg MCHC (31.0-37.0) g/dL RDW (11.5-15.5) % Plt Count (150-450) k/uL MPV Neutrophils % % Lymphocytes % % Monocytes % % Eosinophils % % Basophils % % Neutrophils # (1.3-7.7) k/uL Lymphocytes # (1.0-4.8) k/uL Monocytes # (0-1.0) k/uL Eosinophils # (0-0.7) k/uL Basophils # (0-0.2) k/uL PT (9.0-12.0) sec INR (<1.2) APTT (22.0-30.0) sec Sodium (137-145) mmol/L Potassium (3.5-5.1) mmol/L Chloride (98-107) mmol/L Carbon Dioxide (22-30) mmol/L Anion Gap mmol/L BUN (7-17) mg/dL Creatinine (0.52-1.04) mg/dL Est GFR (CKD-EPI)AfAm (>60 ml/min/1.73 sqM) Est GFR (CKD-EPI)NonAf (>60 ml/min/1.73 sqM) Glucose (74-99) mg/dL Calcium (8.4-10.2) mg/dL Magnesium (1.6-2.3) mg/dL Total Bilirubin (0.2-1.3) mg/dL AST (14-36) U/L ALT (4-34) U/L Alkaline Phosphatase (38-126) U/L Troponin I <0.012 (0.000-0.034) ng/mL Total Protein (6.3-8.2) g/dL Albumin (3.5-5.0) g/dL TSH (0.465-4.680) mIU/L Urine Opiates Screen Not Detected (NotDetected) Ur Oxycodone Screen Not Detected (NotDetected) Urine Methadone Screen Not Detected (NotDetected) Ur Propoxyphene Screen Not Detected (NotDetected) Ur Barbiturates Screen Not Detected (NotDetected) U Tricyclic Antidepress Not Detected (NotDetected) Ur Phencyclidine Scrn Not Detected (NotDetected) Ur Amphetamines Screen Not Detected (NotDetected) U Methamphetamines Scrn Not Detected (NotDetected) U Benzodiazepines Scrn Not Detected (NotDetected) Urine Cocaine Screen Not Detected (NotDetected) U Marijuana (THC) Screen Not Detected (NotDetected) Disposition Clinical Impression: Palpitations Disposition: HOME SELF-CARE Instructions (If sedation given, give patient instructions): Heart Palpitations (ED) Additional Instructions: Patient was instructed to follow-up with her physician for an event monitor. Patient also was instructed to come back in if there is any worsening symptoms new symptoms or chest pain. Is patient prescribed a controlled substance at d/c from ED?: No Referrals: Willem Piper MD [Primary Care Provider] - 1-2 days Time of Disposition: 19:55
[2020-02-28 18:19] LABS: Albumin 4.2 g/dL (3.5-5.0); Calcium 9.4 mg/dL (8.4-10.2); Magnesium 1.8 mg/dL (1.6-2.3); Potassium 3.8 mmol/L (3.5-5.1); Total Bilirubin 0.4 mg/dL (0.2-1.3); Total Protein 7.8 g/dL (6.3-8.2)
--- NOTE | 2020-02-28 18:27 | XR ---
EXAMINATION TYPE: XR chest 2V DATE OF EXAM: 02/28/2020 COMPARISON: 10/03/2016 HISTORY: Dysrhythmia TECHNIQUE: FINDINGS: Heart and mediastinum are normal. Lungs are clear. Diaphragm is normal. There are chest cris ds. Bony thorax is intact. IMPRESSION: No active cardiopulmonary disease. No change.
[2020-02-28 18:34] LABS: INR 0.9 (<1.2); Partial Thromboplastin Time 21.1 sec (22.0-30.0); Prothrombin Time 10.1 sec (9.0-12.0)
[2020-02-28 19:09] LABS: Amphetamine Screen,Urine Not Detected (NotDetected); Cocaine Screen,Urine Not Detected (NotDetected); Opiate Screen,Urine Not Detected (NotDetected); Phencyclidine Screen,Urine Not Detected (NotDetected); Urn Cannabinoid Scrn Not Detected (NotDetected)
[2020-02-28 19:10] LABS: Barbiturate Screen,Urine Not Detected (NotDetected); Benzodiazepines Screen,Urine Not Detected (NotDetected); Methadone Screen, Urine Not Detected (NotDetected); Oxycodone Screen, Urine Not Detected (NotDetected); Tricyclic Antidepressant,Urine Not Detected (NotDetected)
[2020-02-28 19:37] VITALS: RESP 18
[2020-02-28 20:13] VITALS: BP 153/84; PULSE 67; TEMP 98.1
== END 2020-02-28 20:16 | disposition home or self-care (01) ==
LOC: EC 17:27
DX: R00.2 Palpitations (principal); G47.30 Sleep apnea, unspecified; Z79.899 Other long term (current) drug therapy; Z88.6 Allergy status to analgesic agent; Z88.7 Allergy status to serum and vaccine; Z87.19 Personal history of other diseases of the digestive system; Z86.79 Personal history of other diseases of the circulatory system; Z98.890 Other specified postprocedural states; Z82.49 Family history of ischemic heart disease and other diseases of the circulatory system
CPT/HCPCS: 36415; 71046; 80053; 80306; 83735; 84443; 84484; 85025; 85610; 85730; 93005; 99285

== ENCOUNTER → 2020-04-11 | Outpatient (CLI) | payer MEDICARE | END | disposition home or self-care (01) | LOC: LABWHC1 14:12 | PROVIDERS: ATTEND Nurse Practitioner Adult Health | DX: E03.9 Hypothyroidism, unspecified (principal) | CPT/HCPCS: 36415; 84443 ==

== ENCOUNTER → 2020-04-26 | Outpatient (CLI) | payer MEDICARE ==
[2020-04-26 19:24] LABS: Basophils # (A) 0.05 X 10*3/uL (0.00-0.10); Basophils % (A) 0.5 %; Eosinophils # (A) 0.21 X 10*3/uL (0.04-0.35); Eosinophils % (A) 2.2 %; HCT 36.9 % (37.2-46.3); HGB 12.2 g/dL (12.0-15.0); Lymphocytes # (A) 2.69 X 10*3/uL (0.90-5.00); Lymphocytes % (A) 28.4 %; MCHC 33.1 g/dL (32.0-37.0); MCV 93.9 fL (80.0-97.0); Mean Platelet Volume 11.1 fL (9.5-12.2); Monocytes # (A) 0.86 X 10*3/uL (0.20-1.00); Monocytes % (A) 9.1 %; Neutrophils # (A) 5.63 X 10*3/uL (1.80-7.70); Neutrophils % (A) 59.5 %; Platelet Count 260 X 10*3/uL (140-440); RBC 3.93 X 10*6/uL (4.10-5.20); RDW 12.4 % (11.5-14.5); WBC 9.47 X 10*3/uL (4.50-10.00)
== END | disposition home or self-care (01) ==
LOC: LABWHC1 14:00
PROVIDERS: ATTEND Nurse Practitioner Adult Health
DX: K92.2 Gastrointestinal hemorrhage, unspecified (principal); I48.0 Paroxysmal atrial fibrillation
CPT/HCPCS: 36415; 85025

== ENCOUNTER 2020-05-22 13:33 | Emergency (ER) | payer MEDICARE ==
--- NOTE | 2020-05-22 14:34 | ED ---
General Adult HPI - General Source: patient, RN notes reviewed Mode of arrival: ambulatory Limitations: no limitations <Malik Stephenson - Last Filed: 05/22/20 14:32> <Bora Whitmore - Last Filed: 05/22/20 16:38> - General Stated complaint: SOB,Cough,BAM Time Seen by Provider: 05/22/20 14:30 - History of Present Illness Initial comments: 70-year-old female presents emergency Department chief medical cough congestion times one week. Patient states that her tested positive for COVID-19. Patient states that he received an infusion of monoclonal antibodies and physician recommended her to come emergency department to be tested and possible infusion. Patient's had a cough congestion bodyaches nausea, diarrhea. (Malik Stewart) This is a 70-year-old female who presents emergency Department with a direct exposure to COVID. Patient states she's had symptoms of a cough and some shortness of breath and weakness since last . Patient states she's had the chills as well per patient states she does not believe she is had a fever. Patient denies any abdominal pain patient denies chest pain or palpitations. Patient denies any lightheadedness or dizziness. Patient does have a mild headache. (Bora Whitmore) - Related Data Home Medications Medication Instructions Recorded Confirmed Cholecalciferol [Vitamin D3 (25 125 mcg PO DAILY 10/03/16 02/28/20 Mcg = 1000 Iu)] Multivitamins, Thera [Multivitamin 1 tab PO DAILY 10/03/16 02/28/20 (formulary)] Folic Acid 0.8 mcg PO DAILY 10/05/16 02/28/20 Thyroid,Pork [[place] Thyroid] 15 mg PO DAILY 10/05/16 02/28/20 Thyroid,Pork [[place] Thyroid] 60 mg PO DAILY 10/05/16 02/28/20 Ascorbic Acid [Vitamin C] 1,000 mg PO DAILY 02/28/20 02/28/20 Zinc 50 mg PO DAILY 02/28/20 02/28/20 Allergies Allergy/AdvReac Type Severity Reaction Status Date / Time ibuprofen Allergy Anaphylaxis Verified 05/22/20 14:37 oseltamivir [From Tamiflu] Allergy swelling,severe Verified 05/22/20 14:37 headache,SOB Review of Systems ROS Other: All systems not noted in ROS Statement are negative. <Malik Stephenson - Last Filed: 05/22/20 14:32> ROS Other: All systems not noted in ROS Statement are negative. <Bora Whitmore - Last Filed: 05/22/20 16:38> ROS Statement: Those systems with pertinent positive or pertinent negative responses have been documented in the HPI. Past Medical History Past Medical History: GERD/Reflux, GI Bleed, Sleep Apnea/CPAP/BIPAP, Thyroid Disorder Additional Past Medical History / Comment(s): Lupus. HX HIATAL HERNIA Ulcer. HX Migraines. IN 1997 TOLD SLEEP APNEA, UNABLT TO USE MACHINE. HX ARRYTHMIA, HAD ABLATION. HAS FEELING OF SOMETHING STUCK IN THROAT. History of Any Multi-Drug Resistant Organisms: None Reported Past Surgical History: Breast Surgery, Cardiac Ablation, Tonsillectomy, Tubal Ligation Additional Past Surgical History / Comment(s): Breast reduction. CARDIAC ABLATION 09/2016. EGD, COLONOSCOPY. Past Anesthesia/Blood Transfusion Reactions: No Reported Reaction Past Psychological History: No Psychological Hx Reported Past Alcohol Use History: None Reported Past Drug Use History: None Reported - Past Family History Mother Family Medical History: Congestive Heart Failure (CHF) Father Family Medical History: Cancer Additional Family Medical History / Comment(s): Colon CA <Malik Stephenson - Last Filed: 05/22/20 14:32> General Exam <Bora Whitmore - Last Filed: 05/22/20 16:38> - General Exam Comments Initial Comments: GENERAL: Patient is well-developed and well-nourished. Patient is nontoxic and well- hydrated and is in mild distress. ENT: Neck is soft and supple. No significant lymphadenopathy is noted. Oropharynx is clear. Moist mucous membranes. Neck has full range of motion without eliciting any pain. EYES: The sclera were anicteric and conjunctiva were pink and moist. Extraocular movements were intact and pupils were equal round and reactive to light. Eyelids were unremarkable. PULMONARY: Unlabored respirations. Good breath sounds bilaterally. No audible rales rhonchi or wheezing was noted. CARDIOVASCULAR: There is a regular rate and rhythm without any murmurs gallops or rubs. ABDOMEN: Soft and nontender with normal bowel sounds. SKIN: Skin is clear with no lesions or rashes and otherwise unremarkable. NEUROLOGIC: Patient is alert and oriented x3. Cranial nerves II through XII are grossly intact. Motor and sensory are also intact. Normal speech, volume and content. Symmetrical smile. MUSCULOSKELETAL: Normal extremities with adequate strength and full range of motion. No lower extremity swelling or edema. No calf tenderness. LYMPHATICS: No significant lymphadenopathy is noted PSYCHIATRIC: Normal psychiatric evaluation. (Bora Whitmore) Course Vital Signs 05/22/20 14:30 Temperature 98.3 F Pulse Rate 82 Respiratory 22 Rate Blood Pressure 127/83 O2 Sat by Pulse 97 Oximetry Medical Decision Making <Bora Whitmore - Last Filed: 05/22/20 16:38> - Medical Decision Making Patient is been receiving monoclonal antibodies Chest x-ray shows no abnormalities (Bora Whitmore) - Lab Data Lab Results 05/22/20 Range/Units 14:31 Coronavirus (PCR) Detected A (Not Detectd) Disposition <Malik Stephenson - Last Filed: 05/22/20 14:32> Is patient prescribed a controlled substance at d/c from ED?: No Time of Disposition: 16:38 <Bora Whitmore - Last Filed: 05/22/20 16:38> Clinical Impression: COVID-19 Disposition: HOME SELF-CARE Condition: Good Instructions (If sedation given, give patient instructions): Coronavirus Disease 2019 (COVID-19) Referrals: Willem Piper MD [Primary Care Provider] - 1-2 days
[2020-05-22 14:37] VITALS: BP 127/83; PULSE 82; RESP 22; TEMP 98.3
[2020-05-22] MEDS ORDERED: ACETAMINOPHEN TAB 500 MG TAB PO STA (15:43)
[2020-05-22] MEDS ORDERED: IBUPROFEN 600 MG TAB PO STA (15:44)
--- NOTE | 2020-05-22 16:26 | XR ---
EXAMINATION TYPE: XR chest 2V DATE OF EXAM: 05/22/2020 COMPARISON: Chest x-ray February 28, 2020. HISTORY: Difficulty breathing and cough. TECHNIQUE: Frontal and lateral views of the chest are obtained. FINDINGS: There chronic parenchymal changes without definitive new focal air space opacity, pleural effusion, or pneumothorax seen. The cardiac silhouette size remains within normal limits. The osse ous structures are intact. IMPRESSION: Chronic changes without acute pulmonary process. No significant change from prior.
[2020-05-22] MEDS ORDERED: SODIUM CHLORIDE 0.9% 50 ML IVPB ONE (16:45)
[2020-05-22] MEDS ORDERED: BAMLANIVIMAB (EUA) 700 MG, ETESEVIMAB (EUA) 1,400 MG in SODIUM CHLORIDE 0.9% 50 ML IVPB ONE (17:00)
== END 2020-05-22 18:48 | disposition home or self-care (01) ==
LOC: EC 13:33
DX: U07.1 COVID-19 (principal); K21.9 Gastro-esophageal reflux disease without esophagitis; G47.33 Obstructive sleep apnea (adult) (pediatric)
CPT/HCPCS: 87635; 71046; 99285; 96365; Q0245

== ENCOUNTER → 2020-07-19 | Day surgery (SDC) | payer MEDICARE ==
[2020-07-17 14:53] VITALS: BMI 29.4
[~2020-07-19] MED LIST changes: +LIDOCAINE 1% (10MG/ML) FOR IV START INTRADERMA ONE; +LIDOCAINE 1% INJ 10MG/ML (20 ML MDV) ONE; +PROPOFOL 10 MG/ML 20 ML VIAL IV ONE
[2020-07-19 10:52] VITALS: TEMP 97.1
--- NOTE | 2020-07-19 11:35 | P.PCN ---
Date of Procedure: 07/19/20 Procedure(s) Performed: BRIEF HISTORY: Patient is a 70-year-old, pleasant, white female scheduled for an upper endoscopy as a part of evaluation of episode of black tarry stools that happened a month ago. The patient was diagnosed with A. fib and was started on Xarelto and subsequently noticed black tarry stools. She stop the Xarelto and the bleeding resolved. She has prior history of peptic ulcer disease and history of GERD. She is hence scheduled for an upper endoscopy to evaluate further.. PROCEDURE PERFORMED: Esophagogastroduodenoscopy with biopsy. PREOPERATIVE DIAGNOSIS: Melena of 2 days' duration. IV sedation per anesthesia. PROCEDURE: After informed consent was obtained, the patient was brought into the endoscopy unit. IV sedation was administered by Anesthesia under continuous monitoring. Initially the Olympus GIF-140 video endoscope was inserted into the mouth. Esophagus intubated without any difficulty. It was gradually advanced into the stomach and duodenum and carefully examined. The pylorus was slightly tight but I was able to advance the scope without any difficulty into the duodenum. The bulb and the second part of the duodenum appeared normal. The scope at this time was withdrawn to the stomach, adequately insufflated with air, and upon careful examination, mucosa of the antrum, had gastritis and biopsies were done from this area. There were no ulcerations noted. The body, cardia and the fundus appeared normal. The scope was then withdrawn into the eso phagus. The GE junction was located at 39 cm from the incisors. Small sliding type hiatal hernia noted. The esophagus appeared normal. There were no erosions or ulcerations seen and the patient tolerated the procedure well. IMPRESSION: 1. Small hiatal hernia. 2. Mild antral gastritis but no evidence of peptic ulcer disease 3. Early pyloric stenosis. RECOMMENDATIONS: The findings of this examination were discussed with the patient as well as a family. She was advised to follow with the biopsy results. She will continue with Protonix 40 mg daily and follow antireflux measures. She can resume anticoagulation is still indicated..
[2020-07-19 11:36] VITALS: RESP 17
[2020-07-19 11:51] VITALS: BP 133/76; PULSE 70
== END ==
LOC: ORWHC2ENDO 10:19
PROVIDERS: ATTEND Internal Medicine Gastroenterology
DX: K29.50 Unspecified chronic gastritis without bleeding (principal); K44.9 Diaphragmatic hernia without obstruction or gangrene; K31.1 Adult hypertrophic pyloric stenosis; R13.10 Dysphagia, unspecified; K21.9 Gastro-esophageal reflux disease without esophagitis; Z87.11 Personal history of peptic ulcer disease; E07.9 Disorder of thyroid, unspecified; Z79.890 Hormone replacement therapy; Z79.899 Other long term (current) drug therapy; Z88.6 Allergy status to analgesic agent; Z88.8 Allergy status to other drugs, medicaments and biological substances; Z98.890 Other specified postprocedural states
CPT/HCPCS: 88305; 43239; J2001; J2704

== ENCOUNTER → 2020-07-23 | Outpatient (CLI) | payer MEDICARE | END | disposition home or self-care (01) | LOC: LABWHC1 10:32 | PROVIDERS: ATTEND Internal Medicine Endocrinology, Diabetes & Metabolism | DX: E03.8 Other specified hypothyroidism (principal) | CPT/HCPCS: 36415; 84443 ==

== ENCOUNTER → 2020-10-11 | Outpatient (CLI) | payer MEDICARE ==
[2020-10-11 15:19] LABS: T4, Free (Free Thyroxine) 0.75 ng/dL (0.78-2.19)
== END | disposition home or self-care (01) ==
LOC: LABWHC1 12:41
PROVIDERS: ATTEND Internal Medicine Endocrinology, Diabetes & Metabolism
DX: E03.9 Hypothyroidism, unspecified (principal)
CPT/HCPCS: 36415; 84439; 84443; 84480

== ENCOUNTER → 2021-01-29 | Outpatient (CLI) | payer MEDICARE ==
--- NOTE | 2021-02-03 11:50 | MM ---
Reason for exam: screening (asymptomatic). Last mammogram was performed 3 years and 10 months ago. History: Patient is postmenopausal and has history of other cancer at age 69. Reductions of both breasts, 1999. Took estrogen for 6 months beginning at age 55. Physical Findings: A clinical breast exam by your physician is recommended on an annual basis and results should be correlated with mammographic findings. MG 3D Screening Mammo W/Cad Bilateral CC and MLO view(s) were taken. Prior study comparison: March 17, 2017, bilateral MG screening mammo w CAD. September 10, 2015, bilateral MG 3d screening mammo w/cad. There are scattered fibroglandular densities. post reduction mammoplasty changes. Far posterior microcalcifications left area new. ASSESSMENT: Incomplete: need additional imaging evaluation, BI-RAD 0 RECOMMENDATION: Special view mammogram of the left breast. (magnification) If lesion persists on supplemental views, image directed ultrasound is recommended. [facility] will attempt to contact patient to return for supplemental views and ultrasound if indicated.
== END | disposition home or self-care (01) ==
LOC: RADMAMWWP 14:57
PROVIDERS: ATTEND Family Medicine
DX: Z12.31 Encounter for screening mammogram for malignant neoplasm of breast (principal)
CPT/HCPCS: 77063; 77067

== ENCOUNTER → 2021-02-05 | Outpatient (CLI) | payer MEDICARE ==
--- NOTE | 2021-02-05 12:30 | MM ---
Reason for exam: additional evaluation requested from abnormal screening. Last mammogram was performed less than 1 month ago. History: Patient is postmenopausal and has history of other cancer at age 69. Reductions of both breasts, 1999. Took estrogen for 6 months beginning at age 55. Physical Findings: Nurse did not find any significant physical abnormalities on exam. MG 3D Work Up W/Cad LT CC with magnification, LM with magnification, and LM view(s) were taken of the left breast. Prior study comparison: January 29, 2021, bilateral MG 3d screening mammo w/cad. March 17, 2017, bilateral MG screening mammo w CAD. Finding: There are intermediate concern, suspicious coarse heterogeneous, grouped/clustered calcifications in the upper inner quadrant, posterior position of the left breast 12cm from the nipple. New finding since March 17, 2017. These results were verbally communicated with the patient and result sheet given to the patient on 02/05/21. ASSESSMENT: Suspicious, BI-RAD 4 RECOMMENDATION: Stereotactic core biopsy of the left breast. Called Dr. Piper's office with mammographic findings and has scheduled an appointment for the patient for 03/27/21 at 11:[address] Arriola. Biopsy scheduled for 03/17/21 at 9:30. PRELIMINARY REPORT CALLED AND FAXED TO DR. ARRIOLA ON 02/05/21.
== END ==
LOC: RADMAMWWP 08:20
PROVIDERS: ATTEND Family Medicine
DX: R92.8 Other abnormal and inconclusive findings on diagnostic imaging of breast (principal)
CPT/HCPCS: 77065; G0279; 77061

== ENCOUNTER 2021-02-08 17:05 | Emergency (ER) | payer MEDICARE ==
--- NOTE | 2021-02-08 18:34 | ED ---
General Adult HPI - General Chief complaint: ENT Stated complaint: nausea,fatigue,diarrhea Time Seen by Provider: 02/08/21 18:25 Source: patient, RN notes reviewed, old records reviewed Mode of arrival: ambulatory Limitations: no limitations - History of Present Illness Initial comments: 70-year-old white female, alert and oriented 4, well-appearing, presents to the emergency room with complaints of fatigue and nausea and vomiting since . Patient states that she was exposed to coronavirus by her daughter 2 weeks ago. she states that she had coronavirus in May of this year and received monoclonal antibodies. She is just concerned that she may have coronavirus again or influenza. She is requesting a swab. She does not have any nausea at this time. -: days(s) (2) Location: abdomen Severity scale (1-10): 0 Consistency: intermittent Improves with: other (caro ramos) Associated Symptoms: malaise - Related Data Home Medications Medication Instructions Recorded Confirmed Cholecalciferol [Vitamin D3 (25 125 mcg PO DAILY 10/03/16 07/19/20 Mcg = 1000 Iu)] Multivitamins, Thera [Multivitamin 1 tab PO DAILY 10/03/16 07/19/20 (formulary)] Folic Acid 0.8 mcg PO DAILY 10/05/16 07/19/20 Thyroid,Pork [[place] Thyroid] 15 mg PO DAILY 10/05/16 07/19/20 Thyroid,Pork [[place] Thyroid] 60 mg PO DAILY 10/05/16 07/19/20 Ascorbic Acid [Vitamin C] 1,000 mg PO DAILY 02/28/20 07/19/20 Zinc 50 mg PO DAILY 02/28/20 07/19/20 Allergies Allergy/AdvReac Type Severity Reaction Status Date / Time ibuprofen Allergy Anaphylaxis Verified 07/19/20 10:55 oseltamivir [From Tamiflu] Allergy swelling,severe Verified 07/19/20 10:55 headache,SOB Review of Systems ROS Statement: Those systems with pertinent positive or pertinent negative responses have been documented in the HPI. ROS Other: All systems not noted in ROS Statement are negative. Past Medical History Past Medical History: Atrial Fibrillation, GERD/Reflux, GI Bleed, Sleep Apnea/CPAP/BIPAP, Thyroid Disorder Additional Past Medical History / Comment(s): Lupus. HX HIATAL HERNIA Ulcer. HX Migraines. IN 1997 TOLD SLEEP APNEA, UNABLE TO USE MACHINE. HX ARRYTHMIA, HAD ABLATION. HAS FEELING OF SOMETHING STUCK IN THROAT. NEW DX AFIB-WAS ON XARELTO BUT HAD BLOODY STOOLS SO HAS NOT BEEN ON ANYTHING SINCE LATE 2020 History of Any Multi-Drug Resistant Organisms: None Reported Past Surgical History: Breast Surgery, Cardiac Ablation, Tonsillectomy, Tubal Ligation Additional Past Surgical History / Comment(s): Breast reduction. CARDIAC ABLATION 09/2016. EGD, COLONOSCOPY. Past Anesthesia/Blood Transfusion Reactions: No Reported Reaction Past Psychological History: No Psychological Hx Reported Smoking Status: Never smoker Past Alcohol Use History: None Reported Past Drug Use History: None Reported - Past Family History Mother Family Medical History: Congestive Heart Failure (CHF) Father Family Medical History: Cancer Additional Family Medical History / Comment(s): Colon CA General Exam Limitations: no limitations General appearance: alert, in no apparent distress Head exam: Present: atraumatic, normocephalic, normal inspection Eye exam: Present: normal appearance, EOMI ENT exam: Present: normal exam, mucous membranes moist Neck exam: Present: normal inspection, tenderness (cervical chain), full ROM. Absent: meningismus, lymphadenopathy, thyromegaly Respiratory exam: Present: normal lung sounds bilaterally. Absent: respiratory distress, wheezes, rales, rhonchi, stridor, chest wall tenderness, accessory muscle use Cardiovascular Exam: Present: regular rate, normal rhythm, normal heart sounds. Absent: systolic murmur, diastolic murmur, rubs, gallop, clicks GI/Abdominal exam: Present: soft. Absent: tenderness Neurological exam: Present: alert, oriented X3 Psychiatric exam: Present: normal affect, normal mood Skin exam: Present: warm, dry, intact, normal color. Absent: rash, cyanosis, diaphoretic, petechiae, pallor Course Vital Signs 02/08/21 02/08/21 18:16 20:02 Temperature 97.7 F 97.8 F Pulse Rate 77 79 Respiratory 16 18 Rate Blood Pressure 134/80 129/81 O2 Sat by Pulse 95 96 Oximetry Medical Decision Making - Medical Decision Making Well-appearing 70-year-old female presents with complaints of exposure to coronavirus. She states that she did have coronavirus in May of this year. She gets monoclonal antibodies at that time. She is coronavirus and influenza negative today. Her oxygen saturation is 95%. Her lungs are clear. No fevers. Her abdomen is soft and nontender. She was offered Zofran and declined. This is likely a viral illness. She is agreeable to being discharged home and following up with her primary care doctor. Return to the emergency room with any new or worsening symptoms. Case discussed with Dr. Ruff. - Lab Data Lab Results 02/08/21 Range/Units 18:31 Influenza Type A (PCR) Not Detected (Not Detectd) Influenza Type B (PCR) Not Detected (Not Detectd) RSV (PCR) Not Detected (Not Detectd) SARS-CoV-2 (PCR) Not Detected (Not Detectd) Disposition Clinical Impression: Nausea & vomiting Disposition: HOME SELF-CARE Condition: Good Instructions (If sedation given, give patient instructions): Acute Nausea and Vomiting (ED) Additional Instructions: Take vitamin C, vitamin D and zinc. Increase your fluid intake to prevent dehydration. Follow-up with the primary care doctor this week. Return to the emergency room with any new or worsening symptoms. Is patient prescribed a controlled substance at d/c from ED?: No Referrals: Willem Piper MD [Primary Care Provider] - 1-2 days Time of Disposition: 19:53
[2021-02-08 20:10] VITALS: BP 129/81; PULSE 79; RESP 18; TEMP 97.8
== END 2021-02-08 20:02 | disposition home or self-care (01) ==
LOC: EC 17:05
DX: R11.2 Nausea with vomiting, unspecified (principal); R19.7 Diarrhea, unspecified; R53.83 Other fatigue; E07.9 Disorder of thyroid, unspecified; Z88.6 Allergy status to analgesic agent; Z88.8 Allergy status to other drugs, medicaments and biological substances; Z79.890 Hormone replacement therapy; Z20.822 Contact with and (suspected) exposure to COVID-19; Z86.16 Personal history of COVID-19
CPT/HCPCS: 87636; 99284

== ENCOUNTER 2021-04-25 10:42 | Day surgery (SDC) | payer MEDICARE ==
[2021-04-23 15:16] VITALS: BMI 29.8
[~2021-04-25 10:42] MED LIST changes: -LIDOCAINE 1% (10MG/ML) FOR IV START INTRADERMA ONE; -LIDOCAINE 1% INJ 10MG/ML (20 ML MDV) ONE; -PROPOFOL 10 MG/ML 20 ML VIAL IV ONE
[2021-04-25 11:55] VITALS: TEMP 97.8
[2021-04-25] MEDS ORDERED: LACTATED RINGERS 1,000 ML IV ONE (12:04)
[2021-04-25] MEDS ORDERED: LIDOCAINE 1% INJ 10MG/ML (20 ML MDV) ONE (12:55)
[2021-04-25] MEDS ORDERED: PROPOFOL 10 MG/ML 20 ML VIAL IV ONE (12:55)
--- NOTE | 2021-04-25 13:19 | P.PCN ---
Date of Procedure: 04/25/21 Procedure(s) Performed: BRIEF HISTORY: Patient is a 71-year-old, pleasant, white female scheduled for an upper endoscopy with possible dilation as a part of evaluation of dysphagia and epigastric pain for the last few months duration. She has long-standing history of GERD and intermittent Protonix 40 mg daily. She had an upper endoscopy done in the July 2020 that revealed small hiatal hernia and early pyloric stenosis. PROCEDURE PERFORMED: Esophagogastroduodenoscopy with dilation. PREOPERATIVE DIAGNOSIS: Dysphagia/epigastric pain of several months duration/history of GERD. IV sedation per anesthesia. PROCEDURE: After informed consent was obtained, the patient was brought into the endoscopy unit. IV sedation was administered by Anesthesia under continuous monitoring. Initially the Olympus GIF-140 video endoscope was inserted into the mouth. Esophagus intubated without any difficulty. It was gradually advanced into the stomach and duodenum and carefully examined. The bulb and the second part of the duodenum appeared normal. The scope at this time was withdrawn to the stomach, adequately insufflated with air, and upon careful examination, the pylorus had early stenosis but there was liquid bilious to the passage of the scope. Mucosa of the antrum, body, cardia and the fundus appeared normal. The scope was then withdrawn into the esophagus. The GE junction was located at 39 cm from the incisors. Mall hiatal hernia noted. There was a distal esophageal stricture identified with circumferential erythema at the GE junction consistent with LA grade B reflux esophagitis. At this time I proceeded with balloon dilation using 12-13.5 mm TTS balloon in a sequential fashion for 60 seconds.. There was no significant dilation accomplished. Hence at this time proceed with a 15 mm balloon dilation for another 30 seconds. At the site of dilation there was mild oozing identified with subsequently resolved.. The rest of the esophagus appeared normal. There were no erosions or ulcerations seen and the patient tolerated the procedure well. IMPRESSION: 1. Distal esophageal stricture status post balloon dilation using 12, 13.5 and 15 mm TTS balloon as described above. 2. Small hiatal hernia 3. Likely pyloric stenosis with no impedance to the passage of this. RECOMMENDATIONS: The findings of this examination were discussed with the patient as well as a family. She was advised to be on a clear liquid diet for lunch today. Continue with Protonix 40 mg daily and follow antireflux measures..
[2021-04-25 13:25] VITALS: RESP 16
[2021-04-25 13:48] VITALS: BP 141/86; PULSE 67
== END 2021-04-25 14:13 | disposition home or self-care (01) ==
LOC: ORWHC2ENDO 10:42
PROVIDERS: ATTEND Internal Medicine Gastroenterology
DX: K22.2 Esophageal obstruction (principal); K31.1 Adult hypertrophic pyloric stenosis; G47.33 Obstructive sleep apnea (adult) (pediatric); K44.9 Diaphragmatic hernia without obstruction or gangrene; E07.9 Disorder of thyroid, unspecified; Z79.890 Hormone replacement therapy; Z79.899 Other long term (current) drug therapy; Z98.890 Other specified postprocedural states; M32.9 Systemic lupus erythematosus, unspecified; Z88.6 Allergy status to analgesic agent; Z88.8 Allergy status to other drugs, medicaments and biological substances
CPT/HCPCS: 43249; J2001; J2704; C1726

== ENCOUNTER → 2021-06-09 | Outpatient (CLI) | payer MEDICARE ==
[2021-06-09 23:18] LABS: T4, Free (Free Thyroxine) 0.88 ng/dL (0.800-1.800)
== END | disposition home or self-care (01) ==
LOC: LABWHC1 14:34
PROVIDERS: ATTEND Internal Medicine Endocrinology, Diabetes & Metabolism
DX: E03.9 Hypothyroidism, unspecified (principal); R23.2 Flushing
CPT/HCPCS: 36415; 83001; 84439; 84443; 84480

== ENCOUNTER → 2021-12-18 | Outpatient (CLI) | payer MEDICARE | END | disposition home or self-care (01) | LOC: LABWHC1 10:56 | PROVIDERS: ATTEND Internal Medicine Endocrinology, Diabetes & Metabolism | DX: E03.8 Other specified hypothyroidism (principal) | CPT/HCPCS: 36415; 84443 ==

== ENCOUNTER → 2022-10-07 | Outpatient (CLI) | payer MEDICARE | END | disposition home or self-care (01) | LOC: LABWHC1 12:23 | PROVIDERS: ATTEND Internal Medicine Endocrinology, Diabetes & Metabolism | DX: E03.8 Other specified hypothyroidism (principal) | CPT/HCPCS: 36415; 84443 ==

== ENCOUNTER → 2023-04-19 | Outpatient (CLI) | payer MEDICARE | END | disposition home or self-care (01) | LOC: LABWHC1 13:55 | PROVIDERS: ATTEND Internal Medicine Endocrinology, Diabetes & Metabolism | DX: E03.8 Other specified hypothyroidism (principal) | CPT/HCPCS: 36415; 84443 ==

== ENCOUNTER → 2024-06-14 | Outpatient (CLI) | payer MEDICARE ==
--- NOTE | 2024-06-15 10:25 | MM ---
Reason for Exam: Screening (asymptomatic). Last mammogram was performed 1 year(s) and 8 month(s) ago. Patient History: Menarche at age 10. First Full-Term at age 24. Postmenopausal. Other cancer, age 69. Estrogen for 6 months starting at age 55. 1999, Bilateral Reduction. Risk Values: Awilda 5 year model risk: 2.2%. NCI Lifetime model risk: 4.7%. Prior Study Comparison: 03/17/2017 Bilateral Screening Mammogram, [facility]. 01/29/2021 Bilateral Screening Mammogram, [facility]. 02/05/2021 Left Diagnostic Mammogram, [facility]. 09/29/2021 Bilateral MG 3D screening mammo w/cad, [facility]. 10/23/2022 Bilateral MG 3D screening mammo w/cad, [facility]. Tissue Density: There are scattered areas of fibroglandular density. Findings: Analyzed By CAD. Right breast: There is no suspicious group of microcalcifications or new suspicious mass. Left breast: Asymmetry left breast CC view 7.1 cm nipple measuring 7 mm middle depth in the lateral aspect. Spot compression imaging with rolled medial and lateral cc view. Overall Assessment: Incomplete: need additional imaging evaluation, BI-RAD 0 Management: Diagnostic Mammogram of the left breast. [facility] will attempt to contact patient to return for supplemental views and ultrasound if indicated. Patient should continue monthly self-breast exams. A clinical breast exam by your physician is recommended on an annual basis. This exam should not preclude additional follow-up of suspicious palpable abnormalities. Note on Awilda scores and lifetime risk: 1. A Awilda score greater than 3% is considered moderate risk. If this is the case, consider specialist referral to assess eligibility for a risk reducing agent. 2. If overall lifetime risk for the development of breast cancer is 20% or higher, the patient may qualify for future screening with alternating mammogram and breast MRI. [facility], , 06/15/2024 7:56 AM. Electronically signed and approved by: Kaden Burroughs DO
== END | disposition home or self-care (01) ==
LOC: RADMAMWWP 16:28
PROVIDERS: ATTEND Family Medicine
DX: Z12.31 Encounter for screening mammogram for malignant neoplasm of breast (principal); R92.323 Mammographic fibroglandular density, bilateral breasts; Z78.0 Asymptomatic menopausal state
CPT/HCPCS: 77063; 77067

== ENCOUNTER → 2024-06-16 | Outpatient (CLI) | payer MEDICARE ==
--- NOTE | 2024-06-16 11:06 | MM ---
Reason for Exam: Additional evaluation requested from abnormal screening. Last screening mammogram was performed less than 1 month ago. Patient History: Menarche at age 10. First Full-Term at age 24. Postmenopausal. Other cancer, age 69. Estrogen for 6 months starting at age 55. 1998, Bilateral Reduction. 04/02/2021, MG discontinued stereo core LT on the left side. Risk Values: Awilda 5 year model risk: 2.2%. NCI Lifetime model risk: 4.7%. Prior Study Comparison: 09/29/2021 Bilateral MG 3D screening mammo w/cad, [facility]. 10/23/2022 Bilateral MG 3D screening mammo w/cad, [facility]. 06/14/2024 Bilateral MG 3D screening mammo w/cad, [facility]. Tissue Density: Left: There are scattered areas of fibroglandular density. Findings: Analyzed By CAD. Area of concern/asymmetry compresses out on spot compression imaging in the left breast lateral aspect on CC view.. No suspicious masses, calcifications or distortions. Overall Assessment: Benign, BI-RAD 2 Management: Screening Mammogram of both breasts in 1 year. Results were given to the patient verbally at the time of exam. Patient should continue monthly self-breast exams. A clinical breast exam by your physician is recommended on an annual basis. This exam should not preclude additional follow-up of suspicious palpable abnormalities. Note on Awilda scores and lifetime risk: 1. A Awilda score greater than 3% is considered moderate risk. If this is the case, consider specialist referral to assess eligibility for a risk reducing agent. 2. If overall lifetime risk for the development of breast cancer is 20% or higher, the patient may qualify for future screening with alternating mammogram and breast MRI. [facility], , 06/16/2024 11:02 AM. Electronically signed and approved by: Kaden Burroughs DO
== END | disposition home or self-care (01) ==
LOC: RADMAMWWP 10:34
PROVIDERS: ATTEND Family Medicine
DX: R92.8 Other abnormal and inconclusive findings on diagnostic imaging of breast (principal); R92.323 Mammographic fibroglandular density, bilateral breasts; Z78.0 Asymptomatic menopausal state
CPT/HCPCS: 77061; 77065

== ENCOUNTER 2024-08-25 07:42 | Day surgery (SDC) | payer MEDICARE ==
[~2024-08-25 07:42] MED LIST changes: -LACTATED RINGERS 1,000 ML IV SCH; +LIDOCAINE 1% (10MG/ML) FOR IV START INTRADERMA PRN
[2024-08-25] MEDS: IV FLUID CONTINUATION 1,000 ML IV ONE ×2 (08:17→08:36)
[2024-08-25 08:20] VITALS: TEMP 96
[2024-08-25] MEDS: LACTATED RINGERS 1,000 ML IV SCH (08:25)
[2024-08-25] MEDS ORDERED: LIDOCAINE 1% INJ 10MG/ML (20 ML MDV) ONE (08:45)
[2024-08-25] MEDS ORDERED: PROPOFOL 10 MG/ML 20 ML VIAL IV ONE (08:45)
--- NOTE | 2024-08-25 09:06 | P.PCN ---
Date of Procedure: 08/25/24 Procedure(s) Performed: Brief history: Patient is a pleasant 74-year-old white female scheduled for an elective upper endoscopy as well as colonoscopy as a part of evaluation of intermittent dysphagia to solids/GERD of several months duration. She is scheduled for colonoscopy as a part of screening for colorectal neoplasia Procedure performed: Esophagogastroduodenoscopy with balloon dilation Colonoscopy Preoperative diagnosis: GERD/intermittent dysphagia to solids Screening for colon cancer Anesthesia: MAC Procedure: After informed consent was obtained from the patient was brought into the endoscopy unit and IV sedation was administered by anesthesia under continuous monitoring. Initially upper endoscopy was done. The Olympus GF 160 video endoscope was inserted inserted into the mouth and esophagus intubated without any difficulty and was gradually advanced into the distal esophagus with the bolus of tight esophageal stricture identified. The scope could not be advanced through the stricture. This was dilated using 10 to 11 mm TTS balloon for 30 seconds. Following the dilation there was some mucosal tear and oozing identified and the scope was able able to advance into the stomach and duodenum and carefully examined. The pylorus was slightly tight but is able to advance the scope into the duodenum. The bulb and second part of the duodenum appeared normal. The scope was then withdrawn into the stomach adequately insufflated with air and upon careful examination the antrum and body, cardia and fundus appeared normal. The scope was then withdrawn into the esophagus. Small hiatal hernia noted. The GE junction was located at 40 cm to the incisors. There was some mucosal oozing at the site of dilation noted. Rest of the esophagus appeared normal. Patient tolerated the procedure well. At this time the patient continued to remain sedation. Initial digital rectal examination was normal. Olympus CF 160 video colonoscope was then inserted into the rectum and gradually advanced to the cecum without any difficulty. Careful examination was performed as the scope was gradually being withdrawn. The prep was excellent. The cecum, ascending colon, transverse colon, descending colon, sigmoid colon and rectum appeared normal. Retroflexion was performed in the rectum and no lesions were noted. Patient tolerated the procedure well. Impression: 1. Upper endoscopy revealed distal esophageal stricture status post balloon dilation using 10 to 11 mm TTS balloon and small hiatal hernia 2. Colonoscopy was within normal limits with no evidence of colorectal neoplasia Recommendations: Findings of this examination were discussed with the patient as well as her family. She was advised to remain on clear liquids for 2 hours. Continue with Prilosec 20 mg daily and follow antireflux measures. Follow-up in the office in 3 to 4 weeks. Based on her symptoms will decide on a repeat dilation if needed. Recommended repeat screening colonoscopy in 10 years.
[2024-08-25 09:41] VITALS: RESP 16
[2024-08-25 09:51] LABS: Glucose,Whole Blood 87 mg/dL (70-110)
[2024-08-25 09:58] VITALS: BP 143/88; PULSE 62
== END 2024-08-25 10:02 | disposition home or self-care (01) ==
LOC: ORWHC2ENDO 07:42
PROVIDERS: ATTEND Internal Medicine Gastroenterology
DX: Z12.11 Encounter for screening for malignant neoplasm of colon (principal); K22.2 Esophageal obstruction; K44.9 Diaphragmatic hernia without obstruction or gangrene; K21.9 Gastro-esophageal reflux disease without esophagitis; K92.2 Gastrointestinal hemorrhage, unspecified; C44.311 Basal cell carcinoma of skin of nose; C55 Malignant neoplasm of uterus, part unspecified; E07.9 Disorder of thyroid, unspecified; Z88.6 Allergy status to analgesic agent; Z79.899 Other long term (current) drug therapy
CPT/HCPCS: 43249; J2003; J2704; C1726; G0121; 45378